=== PATIENT | female | born 1950 | race Two or more races ===

== ENCOUNTER 2021-05-26 09:43 | Outpatient (REF) | payer MEDICARE, SELFPAY ==
--- NOTE | ~2021-05-26 | MM_ITS ---
EXAMINATION: MM SCREENING DIGITAL BREAST TOMOSYNTHESIS, BILATERAL CLINICAL INFORMATION: Screening. Asymptomatic. The lifetime risk of breast cancer based on the Tyrer-Cuzick Model is 1.2%. COMPARISON: Mammography: September 12, 2019 and studies dating back to March 12, 2014 TECHNIQUE: Digital breast tomosynthesis is performed in both the craniocaudal and mediolateral oblique views along with computer-aided detection (CAD). Synthesized 2D images are generated from the tomosynthesis. FINDINGS: There are scattered areas of fibroglandular density (ACR BI-RADS breast composition Category b). There are no significant masses, abnormal calcifications, or other abnormalities. MM/MM tomosynthesis screening BI IMPRESSION: There are no significant changes from prior study. ASSESSMENT: BI-RADS 1: Negative RECOMMENDATION: Routine annual mammography screening. This patient's information was entered into a reminder system with a target due date for their next mammogram.
== END 2021-05-26 09:44 | disposition home or self-care (01) ==
LOC: HO.MAMMO 09:43
PROVIDERS: Visit Provider Internal Medicine
DX: Z12.31 Encounter for screening mammogram for malignant neoplasm of breast (principal)
CPT/HCPCS: 77063; 77067

== ENCOUNTER 2022-08-11 14:23 | Outpatient (REF) | payer OTHER, SELFPAY ==
--- NOTE | ~2022-08-11 | MM_ITS ---
EXAMINATION: MM SCREENING DIGITAL BREAST TOMOSYNTHESIS, BILATERAL CLINICAL INFORMATION: Screening. Asymptomatic. The lifetime risk of breast cancer based on the Tyrer-Cuzick Model is 3%. COMPARISON: Mammography: 05/26/2021, 09/12/2019, 07/24/2018 TECHNIQUE: Digital breast tomosynthesis is performed in both the craniocaudal and mediolateral oblique views along with computer-aided detection (CAD). Synthesized 2D images are generated from the tomosynthesis. FINDINGS: There are scattered areas of fibroglandular density (ACR BI-RADS breast composition Category b). There are no significant masses, abnormal calcifications, or other abnormalities. Parenchymal pattern is similar to prior studies. There is no developing density or architectural abnormality. The axilla and skin contours are unremarkable. No significant changes. MM/MM tomosynthesis screening BI IMPRESSION: No mammographic evidence of malignancy. ASSESSMENT: BI-RADS 1: Negative RECOMMENDATION: Routine annual mammography screening. This patient's information was entered into a reminder system with a target due date for their next mammogram.
--- NOTE | ~2022-08-11 | MM_ITS ---
EXAMINATION: BONE DENSITOMETRY CLINICAL INDICATION: Other specified disorders of bone density and structure, unspecified site.. COMPARISON: Previous BD dated 09/12/2019 and baseline BD dated 08/22/2007. TECHNIQUE: Using a Bio[employer]antis DXA System (software version: 13.1) manufactured by [employer], dual-energy x-ray absorptiometry was performed of the lumbar spine and left hip. The images are of good technical quality. Summary results are attached. FINDINGS: AP SPINE L1-L4: Current: BMD 0.999 g/cm2, Z-score 0.3, T-score -1.5, osteopenia, 4.9% increase from previous, 2.3% increase from baseline (<5% change is not significant). Prior: BMD 0.952 g/cm2. Baseline: BMD 0.977 g/cm2. LEFT FEMUR, NECK: Current: BMD 0.697 g/cm2, Z-score -0.6, T-score -2.5, osteoporosis. Prior: BMD 0.712 g/cm2. Baseline: BMD 0.815 g/cm2. LEFT FEMUR, TOTAL: Current: BMD 0.756 g/cm2, Z-score -0.3, T-score -2.0, osteopenia, 2.6% decrease from previous, 14.5% decrease from baseline (<5% change is not significant). Prior: BMD 0.776 g/cm2. Baseline: BMD 0.884 g/cm2. IDENTIFIED RISK FACTORS: Secondary osteoporosis (early menopause). HISTORY OF FRACTURE: None listed. MEDICATIONS: Vitamin D. MM/XR DEXA axial skeleton IMPRESSION: 1. DIAGNOSIS: Osteoporosis based on the lowest T-score value of -2.5 in the femoral neck applying World Health Organization criteria. 2. 10-YEAR FRACTURE RISK PREDICTION, FRAX: According to the guidelines, FRAX calculation should only be performed on patients in the osteopenia bone density category. Therefore, FRAX was not performed on this patient.? 3. Treatment Recommendations: NOF guidelines recommend consideration for treatment in postmenopausal women and men age 50 and older presenting with the following: -A hip or vertebral (clinical or morphometric) fracture. -T-score less than or equal to -2.5 at the femoral neck or spine after appropriate evaluation to exclude secondary causes. -Low bone mass at the hip or spine and a 10-year fracture probability by FRAX of greater than or equal to 3% for hip fracture or greater than or equal to 20% for major osteoporotic fracture based on the [place] adapted WHO algorithm. 4. Other Recommendations: All treatment decisions require clinical judgment and consideration of individual patient factors, including patient preferences, comorbidities, previous drug use, risk factors not captured in the FRAX model (e.g. frailty, falls, vitamin D deficiency, increased bone turnover, interval significant decline in bone density) and possible under or overestimation of fracture risk by FRAX. Additional medical evaluation for secondary cause of low bone mineral density may be appropriate. FUTURE SCAN RECOMMENDATION: People with diagnosed cases of osteoporosis or at high risk for fracture should have regular bone mineral density tests. For patients eligible for Medicare, routine testing is allowed once every 2 years. The testing frequency can be increased to one year for patients who have rapidly progressing disease, those who are receiving or discontinuing medical therapy to restore bone mass, or have additional risk factors.
== END 2022-08-11 14:24 | disposition home or self-care (01) ==
LOC: HO.MAMMO 14:23
PROVIDERS: PCP Internal Medicine; Visit Provider Internal Medicine
DX: M85.80 Other specified disorders of bone density and structure, unspecified site (principal); E28.319 Asymptomatic premature menopause
CPT/HCPCS: 77063; 77067; 77080

== ENCOUNTER 2023-03-02 08:07 | Outpatient (REF) | payer OTHER, SELFPAY ==
[2023-03-02 14:25] LABS: MANUAL DIFF FLAG NO
[2023-03-02 14:32] LABS: Basophils Absolute Auto 0.1 X10*3/uL (0.0-0.2); Basophils Percent Auto 1.2 % (0-2); Eosinophils Absolute Auto 0.6 X10*3/uL (0.0-0.4); Eosinophils Percent Auto 7.8 % (0-4); Hematocrit 37.1 % (37.0-47.0); Hemoglobin 11.8 g/dl (12.0-16.0); Imm Gran Abs Auto 0.02 X10*3/uL (0.00-0.03); Imm Gran Pct Auto 0.3 % (0.0-0.4); Lymphocytes Absolute Auto 2.2 X10*3/uL (1.2-4.9); Lymphocytes Percent Auto 28.9 % (20-40); Mean Corpuscular HGB Conc 31.8 g/dl (31.0-35.0); Mean Corpuscular Hemoglobin 28.3 pg (27.0-33.0); Mean Platelet Volume 9.9 fL (9.4-12.3); Monocytes Absolute Auto 0.8 X10*3/uL (0.1-1.2); Monocytes Percent Auto 10.6 % (2-11); Neutrophils Percent Auto 51.2 % (45-73); Platelet Count 336 X10*3/uL (160-400); Red Blood Count 4.17 X10*6/uL (4.20-5.50); Red Cell Distribution Width 13.3 % (11.0-16.0); White Blood Count 7.7 X10*3/uL (4.8-10.8)
[2023-03-02 15:26] LABS: Alanine Aminotransferase 7 U/L (0-31); Alkaline Phosphatase 59 U/L (39-117); Anion Gap 11 (12-20); Aspartate Amino Transferase 13 U/L (5-31); Bilirubin Total 0.4 mg/dL (0.0-1.0); Blood Urea Nitrogen 34 mg/dL (9-16); Calcium 9.5 mg/dL (8.4-10.2); Carbon Dioxide 24 mmol/L (22-29); Chloride 108 mmol/L (96-108); Cholesterol 184 mg/dL; Estimated Glomerular Filt Rate 35; Glucose Fasting 91 mg/dL (60-99); HDL Cholesterol 38 mg/dL; LDL Cholesterol Calculated 120 mg/dl; Potassium 4.1 mmol/L (3.3-5.1); Sodium 139 mmol/L (135-145); Total Protein 7.5 g/dL (6.5-8.0); Triglycerides 130 mg/dL
[2023-03-02 15:27] LABS: Creatinine Urine 82.91 mg/dL; Microalbum/Creatinine Ratio Ur 90.4 ug/mg cr
[2023-03-02 15:41] LABS: TSH reflex Free T4 1.38 uIU/mL (0.32-4.0)
== END 2023-03-02 08:08 | disposition home or self-care (01) ==
LOC: HO.CHCLDS 08:07
PROVIDERS: Absent Provider Internal Medicine Cardiovascular Disease; Visit Provider Internal Medicine
DX: I25.10 Atherosclerotic heart disease of native coronary artery without angina pectoris (principal); E11.9 Type 2 diabetes mellitus without complications
CPT/HCPCS: 36415; 80053; 80061; 82043; 84443; 85025

== ENCOUNTER 2023-03-22 09:56 | Outpatient (REF) | payer OTHER, SELFPAY ==
[2023-03-22 14:39] LABS: Anion Gap 15 (12-20); Blood Urea Nitrogen 45 mg/dL (9-16); Calcium 9.9 mg/dL (8.4-10.2); Carbon Dioxide 23 mmol/L (22-29); Chloride 100 mmol/L (96-108); Estimated Glomerular Filt Rate 15; Glucose Fasting 261 mg/dL (60-99); Potassium 3.6 mmol/L (3.3-5.1); Sodium 134 mmol/L (135-145)
== END 2023-03-22 09:57 | disposition home or self-care (01) ==
LOC: HO.CHCLDS 09:56
PROVIDERS: Visit Provider Internal Medicine
DX: R74.8 Abnormal levels of other serum enzymes (principal)
CPT/HCPCS: 36415; 80048

== ENCOUNTER 2023-04-16 08:47 | Outpatient (REF) | payer OTHER, SELFPAY ==
[2023-04-16 14:32] LABS: Anion Gap 14 (12-20); Blood Urea Nitrogen 19 mg/dL (9-16); Calcium 9.5 mg/dL (8.4-10.2); Carbon Dioxide 22 mmol/L (22-29); Chloride 107 mmol/L (96-108); Estimated Glomerular Filt Rate 49; Glucose Fasting 138 mg/dL (60-99); Potassium 3.8 mmol/L (3.3-5.1); Sodium 139 mmol/L (135-145)
== END 2023-04-16 08:48 | disposition home or self-care (01) ==
LOC: HO.CHCLDS 08:47
PROVIDERS: Visit Provider Internal Medicine
DX: E11.65 Type 2 diabetes mellitus with hyperglycemia (principal)
CPT/HCPCS: 36415; 80048

== ENCOUNTER 2023-08-31 09:48 | Outpatient (REF) | payer OTHER, SELFPAY ==
[2023-08-31 14:45] LABS: Alanine Aminotransferase 26 U/L (0-31); Albumin Level 4.1 g/dL (3.5-5.0); Alkaline Phosphatase 69 U/L (39-117); Anion Gap 12 (12-20); Aspartate Amino Transferase 29 U/L (5-31); Bilirubin Total 0.5 mg/dL (0.0-1.0); Blood Urea Nitrogen 25 mg/dL (9-16); Calcium 9.7 mg/dL (8.4-10.2); Carbon Dioxide 26 mmol/L (22-29); Chloride 105 mmol/L (96-108); Cholesterol 80 mg/dL (<200); Estimated Glomerular Filt Rate 43; Glucose Random 182 mg/dL (60-115); HDL Cholesterol 53 mg/dL (>40); LDL Cholesterol Calculated 17 mg/dL (<100); Potassium 3.7 mmol/L (3.3-5.1); Sodium 139 mmol/L (135-145); Total Protein 7.4 g/dL (6.5-8.0); Triglycerides 53 mg/dL (<150)
[2023-08-31 15:05] LABS: Estimated Average Glucose 189 mg/dL; Hemoglobin A1c % 8.2 % (<6.0)
== END 2023-08-31 09:49 | disposition home or self-care (01) ==
LOC: HO.CHCLDS 09:48
PROVIDERS: Visit Provider Internal Medicine
DX: E11.65 Type 2 diabetes mellitus with hyperglycemia (principal)
CPT/HCPCS: 36415; 80053; 80061; 83036

== ENCOUNTER 2023-12-14 09:10 | Outpatient (REF) | payer OTHER, SELFPAY ==
[2023-12-14 14:39] LABS: Estimated Average Glucose 171 mg/dL; Hemoglobin A1c % 7.6 % (<6.0)
[2023-12-14 14:52] LABS: Alanine Aminotransferase 10 U/L (0-31); Alkaline Phosphatase 57 U/L (39-117); Anion Gap 12 (12-20); Aspartate Amino Transferase 17 U/L (5-31); Bilirubin Total 0.4 mg/dL (0.0-1.0); Blood Urea Nitrogen 16 mg/dL (9-16); Calcium 9.5 mg/dL (8.4-10.2); Carbon Dioxide 26 mmol/L (22-29); Chloride 107 mmol/L (96-108); Estimated Glomerular Filt Rate 48; Glucose Random 70 mg/dL (60-115); Potassium 4.1 mmol/L (3.3-5.1); Sodium 141 mmol/L (135-145); Total Protein 7.1 g/dL (6.5-8.0)
== END 2023-12-14 09:11 | disposition home or self-care (01) ==
LOC: HO.CHCLDS 09:10
PROVIDERS: Visit Provider Internal Medicine
DX: E11.65 Type 2 diabetes mellitus with hyperglycemia (principal)
CPT/HCPCS: 36415; 80053; 83036

== ENCOUNTER 2024-04-01 11:08 | Outpatient (REF) | payer OTHER, SELFPAY ==
[2024-04-01 14:40] LABS: Alanine Aminotransferase 13 U/L (0-31); Albumin Level 4.1 g/dL (3.5-5.0); Alkaline Phosphatase 59 U/L (39-117); Anion Gap 11 (12-20); Aspartate Amino Transferase 17 U/L (5-31); Bilirubin Total 0.5 mg/dL (0.0-1.0); Blood Urea Nitrogen 13 mg/dL (9-16); Calcium 9.5 mg/dL (8.4-10.2); Carbon Dioxide 26 mmol/L (22-29); Chloride 106 mmol/L (96-108); Cholesterol 106 mg/dL (<200); Estimated Glomerular Filt Rate > 60; Glucose Random 146 mg/dL (60-115); HDL Cholesterol 49 mg/dL (>40); LDL Cholesterol Calculated 41 mg/dL (<100); Potassium 3.8 mmol/L (3.3-5.1); Sodium 139 mmol/L (135-145); Total Protein 7.4 g/dL (6.5-8.0); Triglycerides 84 mg/dL (<150)
[2024-04-01 14:41] LABS: Estimated Average Glucose 220 mg/dL; Hemoglobin A1c % 9.3 % (<6.0)
[2024-04-01 15:33] LABS: Creatinine Urine 112.43 mg/dL; Microalbum/Creatinine Ratio Ur 122.7 ug/mg cr (<30)
== END 2024-04-01 11:09 | disposition home or self-care (01) ==
LOC: HO.CHCLDS 11:08
PROVIDERS: Visit Provider Internal Medicine
DX: E11.65 Type 2 diabetes mellitus with hyperglycemia (principal)
CPT/HCPCS: 36415; 80053; 80061; 82043; 82570; 83036

== ENCOUNTER 2025-04-27 08:34 | Outpatient (REF) | payer OTHER, SELFPAY ==
--- OUTSIDE RECORDS SUMMARY | 2025-04-27 09:13 | XMS_ITS | Encounter Summary ---
Author Organization [employer] Address [address] [place] [address] 7 [place] [address] Care Team Providers Care Collection Agent Name Role Phone Roly Morgan MD Primary Care Prov ider Martin Stoner MD Primary Care Provider [phone] Encounter Details Date Type Department Care Team (Late st Contact Info) Description 08/10/2022 Orders Only [facility] MED & PEDS [address] [place] [address] Chaya Rolon LPN Social History Tobacco Use Types Packs/Day Years Used Date Smoking Tobacco: Never Assessed Comments Unknown Sex and Gender Information Value Date Recorded Sex Assigned at Female 05/22/2022 10:14 AM EDT Legal Sex Female 10:14 AM EDT Gender Identity Female 05/22/2022 10:14 AM EDT Sexual Orientation Straight 05/22/2022 10 :14 AM EDT documented as of this encounter Plan of Treatment Upcoming Encounters Date Type Department Care Team (Late st Contact Info) Description 05/14/2025 10:00 AM EDT Medication Management [facility]ED[facility] [address] [place] [address] Danya Padilla, PharmD [address] [place] [address] 05/19/2025 9:00 AM EDT Office Visit [facility] [address] [place] [address] Martin Stoner MD [address] [place] [address] (work) documented as of this encounter Procedures Procedure Name Priority Date/Time Associated Diagnosis Comments BI MAMMOGRAM SCREENING TOMOSYNTHESIS BILATERAL Routine 08/11/2022 3:45 PM EST BD DEXA AXIAL Routine 08/11/2022 3:20 PM EST documented in this encounter Results * BI Mammogram Screening Tomosynthesis Bilateral (08/11/2022 3:45 PM EST) Anatomical Region Laterality Modality Breast Bilateral Mammography 08/11/2022 3:45 PM EST Narrative 08/15/2022 12:46 PM EST [place] [facility] [address] [place] [address] Mammography Report Signed Patient: Gabby Mclean MR#: [id number] : 1950 Acct:[id number] Age/Sex: 71 / F ADM Date: 08/11/22 Loc: HO.MAMMO Attending Dr: Roly Garidner MD Ordering Physician: Roly Morgan MD Res ults: 1Negative Date of Service: 08/11/22 Follow Up: 1 Year From Orig inal Mammogram Procedure(s): MM tomosynthesis screening BI Accession Number(s): [id number] cc: Roly Morgan MD EXAMINATION: MM SCREENING DIGITAL BREAST TOMOSYNTHESIS, BILATERAL CLINICAL INFORMATION: Screening. Asymptomatic. The lifetime risk of breast cancer based on the Tyrer-Cuzick Model is 3%. COMPARISON: Mammography: 05/26/2021, 09/12/2019, 07/24/2018 TECHNIQUE: Digital breast tomosynthesis is performed in both the craniocaudal and mediolateral oblique views along with computer-aided detection (CAD). Synthesized 2D images are generated from the tomosynthesis. FINDINGS: There are scattered areas of fibroglandular density (ACR BI-RADS breast composition Category b). There are no significant masses, abnormal calcifications, or other abnormalities. Parenchymal pattern is similar to prior studies. There is no developing density or architectural abnormality. The axilla and skin contours are unremarkable. No significant changes. MM/MM tomosynthesis screening BI IMPRESSION: No mammographic evidence of malignancy. ASSESSMENT: BI-RADS 1: Negative RECOMMENDATION: Routine annual mammography screening. This patient's information was entered into a reminder system with a target due date for their next mammogram. Dictated By: Justni Mann MD Signed By: <Electronically signed by Justin Mann MD in OV> 08/15/22 1243 DD/ 1545 TD/TT: Technical Support 1 Software Engineer: LO Procedure Note Donotuseinterpreter, Image - 08/15/2022 [facility] [address] [place], [place] [address] Mammography Report Signed Patient: Opal Mclean#: [id number] : 9Acct:[id number] Age/Sex: 71 / FADM Date: 08/11/22 Loc: HO.MAMMO Attending Dr: Roly Gardiner MD Ordering Physician: Roly Morgan ults: 1Negative Date of Service: 08/11/22Follow Up: 1 Year From Orig inal Mammogram Procedure(s): MM tomosynthesis screening BI Accession Number(s): [id number] cc: Roly Morgan MD EXAMINATION: MM SCREENING DIGITAL BREAST TOMOSYNTHESIS, BILATERAL CLINICAL INFORMATION: Screening. Asymptomatic. The lifetime risk of breast cancer based on the Tyrer-Cuzick Model is 3%. COMPARISON: Mammography: 05/26/2021, 09/12/2019, 07/24/2018 TECHNIQUE: Digital breast tomosynthesis is performed in both the craniocaudal and mediolateral oblique views along with computer-aided detection (CAD). Synthesized 2D images are generated from the tomosynthesis. FINDINGS: There are scattered areas of fibroglandular density (ACR BI-RADS breast composition Category b). There are no significant masses, abnormal calcifications, or other abnormalities. Parenchymal pattern is similar to prior studies. There is no developing density or architectural abnormality. The axilla and skin contours are unremarkable. No significant changes. MM/MM tomosynthesis screening BI IMPRESSION: No mammographic evidence of malignancy. ASSESSMENT: BI-RADS 1: Negative RECOMMENDATION: Routine annual mammography screening. This patient's information was entered into a reminder system with a target due date for their next mammogram. Dictated By: Justin Mann MD Signed By: <Electronically signed by Justin Mann MD in OV> 08/15/22 1243 DD/ 1545 TD/TT: Technical Support 1 Software Engineer: LO [facility] External Provider IMG BI PROCEDURES Edited Result - Final * BD DEXA Axial (08/11/2022 3:20 PM EST) Anatomical Region Laterality Modality Body Radiographic Kaye ging 08/11/2022 3:20 PM EST Narrative 08/14/2022 7:35 AM EST [address] [place], [place] [address] Mammography Report Signed Patient: Gabby Mclean MR#: [id number] : 1950 Acct:[id number] Age/Sex: 71 / F ADM Date: 08/11/22 Loc: HO.MAMMO Attending Dr: Roly Gardiner MD Ordering Physician: Roly Morgan MD Res ults: Date of Service: 08/11/22 Follow Up: Procedure(s): XR DEXA axial skeleton Accession Number(s): [id number] cc: Roly Morgan MD EXAMINATION: BONE DENSITOMETRY CLINICAL INDICATION: Other specified disorders of bone density and structure, unspecified site.. COMPARISON: Previous BD dated 09/12/2019 and baseline BD dated 08/22/2007. TECHNIQUE: Using a [employer] DXA System (software version: 13.1) manufactured by [employer], dual-energy x-ray absorptiometry was performed of the lumbar spine and left hip. The images are of good technical quality. Summary results are attached. FINDINGS: AP SPINE L1-L4: Current: BMD 0.999 g/cm2, Z-score 0.3, T-score -1.5, osteopenia, 4.9% increase from previous, 2.3% increase from baseline (<5% change is not significant). Prior: BMD 0.952 g/cm2. Baseline: BMD 0.977 g/cm2. LEFT FEMUR, NECK: Current: BMD 0.697 g/cm2, Z-score -0.6, T-score -2.5, osteoporosis. Prior: BMD 0.712 g/cm2. Baseline: BMD 0.815 g/cm2. LEFT FEMUR, TOTAL: Current: BMD 0.756 g/cm2, Z-score -0.3, T-score -2.0, osteopenia, 2.6% decrease from previous, 14.5% decrease from baseline (<5% change is not significant). Prior: BMD 0.776 g/cm2. Baseline: BMD 0.884 g/cm2. IDENTIFIED RISK FACTORS: Secondary osteoporosis (early menopause). HISTORY OF FRACTURE: None listed. MEDICATIONS: Vitamin D. MM/XR DEXA axial skeleton IMPRESSION: 1. DIAGNOSIS: Osteoporosis based on the lowest T-score value of -2.5 in the femoral neck applying World Health Organization criteria. 2. 10-YEAR FRACTURE RISK PREDICTION, FRAX: According to the guidelines, FRAX calculation should only be performed on patients in the osteopenia bone density category. Therefore, FRAX was not performed on this patient.? 3. Treatment Recommendations: NOF guidelines recommend consideration for treatment in postmenopausal women and men age 50 and older presenting with the following: -A hip or vertebral (clinical or morphometric) fracture. -T-score less than or equal to -2.5 at the femoral neck or spine after appropriate evaluation to exclude secondary causes. -Low bone mass at the hip or spine and a 10-year fracture probability by FRAX of greater than or equal to 3% for hip fracture or greater than or equal to 20% for major osteoporotic fracture based on the [place] adapted WHO algorithm. 4. Other Recommendations: All treatment decisions require clinical judgment and consideration of individual patient factors, including patient preferences, comorbidities, previous drug use, risk factors not captured in the FRAX model (e.g. frailty, falls, vitamin D deficiency, increased bone turnover, interval significant decline in bone density) and possible under or overestimation of fracture risk by FRAX. Additional medical evaluation for secondary cause of low bone mineral density may be appropriate. FUTURE SCAN RECOMMENDATION: People with diagnosed cases of osteoporosis or at high risk for fracture should have regular bone mineral density tests. For patients eligible for Medicare, routine testing is allowed once every 2 years. The testing frequency can be increased to one year for patients who have rapidly progressing disease, those who are receiving or discontinuing medical therapy to restore bone mass, or have additional risk factors. Dictated By: Justin Mann MD Signed By: <Electronically signed by Justin Mann MD in OV> 08/14/22 0732 DD/ 1520 TD/TT: Technical Support 1 Software Engineer: LO Procedure Note Donotuseinterpreter, Image - 08/14/2022 [facility] [address] [place] [address] Mammography Report Signed Patient: Gabby McleanMR#: [id number] : 9Acct:[id number] Age/Sex: 71 / FADM Date: 08/11/22 Loc: HO.MAMMO Attending Dr: Roly Gardiner MD Ordering Physician: Roly Morgan ults: Date of Service: 08/11/22Follow Up: Procedure(s): XR DEXA axial skeleton Accession Number(s): [id number] cc: Roly Morgan MD EXAMINATION: BONE DENSITOMETRY CLINICAL INDICATION: Other specified disorders of bone density and structure, unspecified site.. COMPARISON: Previous BD dated 09/12/2019 and baseline BD dated 08/22/2007. TECHNIQUE: Using a [employer] DXA System (software version: 13.1) manufactured by [employer], dual-energy x-ray absorptiometry was performed of the lumbar spine and left hip. The images are of good technical quality. Summary results are attached. FINDINGS: AP SPINE L1-L4: Current: BMD 0.999 g/cm2, Z-score 0.3, T-score -1.5, osteopenia, 4.9% increase from previous, 2.3% increase from baseline (<5% change is not significant). Prior: BMD 0.952 g/cm2. Baseline: BMD 0.977 g/cm2. LEFT FEMUR, NECK: Current: BMD 0.697 g/cm2, Z-score -0.6, T-score -2.5, osteoporosis. Prior: BMD 0.712 g/cm2. Baseline: BMD 0.815 g/cm2. LEFT FEMUR, TOTAL: Current: BMD 0.756 g/cm2, Z-score -0.3, T-score -2.0, osteopenia, 2.6% decrease from previous, 14.5% decrease from baseline (<5% change is not significant). Prior: BMD 0.776 g/cm2. Baseline: BMD 0.884 g/cm2. IDENTIFIED RISK FACTORS: Secondary osteoporosis (early menopause). HISTORY OF FRACTURE: None listed. MEDICATIONS: Vitamin D. MM/XR DEXA axial skeleton IMPRESSION: 1. DIAGNOSIS: Osteoporosis based on the lowest T-score value of -2.5 in the femoral neck applying World Health Organization criteria. 2. 10-YEAR FRACTURE RISK PREDICTION, FRAX: According to the guidelines, FRAX calculation should only be performed on patients in the osteopenia bone density category. Therefore, FRAX was not performed on this patient.? 3. Treatment Recommendations: NOF guidelines recommend consideration for treatment in postmenopausal women and men age 50 and older presenting with the following: -A hip or vertebral (clinical or morphometric) fracture. -T-score less than or equal to -2.5 at the femoral neck or spine after appropriate evaluation to exclude secondary causes. -Low bone mass at the hip or spine and a 10-year fracture probability by FRAX of greater than or equal to 3% for hip fracture or greater than or equal to 20% for major osteoporotic fracture based on the [place] adapted WHO algorithm. 4. Other Recommendations: All treatment decisions require clinical judgment and consideration of individual patient factors, including patient preferences, comorbidities, previous drug use, risk factors not captured in the FRAX model (e.g. frailty, falls, vitamin D deficiency, increased bone turnover, interval significant decline in bone density) and possible under or overestimation of fracture risk by FRAX. Additional medical evaluation for secondary cause of low bone mineral density may be appropriate. FUTURE SCAN RECOMMENDATION: People with diagnosed cases of osteoporosis or at high risk for fracture should have regular bone mineral density tests. For patients eligible for Medicare, routine testing is allowed once every 2 years. The testing frequency can be increased to one year for patients who have rapidly progressing disease, those who are receiving or discontinuing medical therapy to restore bone mass, or have additional risk factors. Dictated By: Justin Mann MD Signed By: <Electronically signed by Justin Mann MD in OV> 08/14/22 0732 DD/ 1520 TD/TT: Technical Support 1 Software Engineer: TERESITA [facility] External Provider IMG DXA PROCEDURES Final Result documented in this encounter Visit Diagnoses Not on filedocumented in this encounter Care Teams Collection Agent Relationship Specialty Start Date End Date SummersRoly Smith MD [address] [place] [address] PCP - General Internal Medicine 12/21/19 04/20/25 Martin Stoner MD [address] [place] [address] PCP - General Internal Medicine 04/21/25 documented as of this encounter
--- OUTSIDE RECORDS SUMMARY | 2025-04-27 09:13 | XMS_ITS | Encounter Summary ---
Author Organization [employer] Address [address] [place] [address] [address] [place] [address] Care Team Providers Care [employer] Name Role Phone Roly Morgan MD Primary Care Prov ider Martin Stoner MD Primary Care Provider [phone] Encounter Details Date Type Department Care Team ([facility] st Contact Info) Description 10/24/2023 Orders Only [facility] MED & PEDS [address] [place], [place] [phone] Roly Morgan MD [address] [place] [address] Social History Tobacco Use Types Packs/Day Years Used Date Smoking Tobacco: Never Smokeless Tobacco: Never Alcohol Use Standard Drinks/Week Comments Never 0 (1 standard drink = 0.6 oz pur e alcohol) Depression Answer Date Recorded Patient Health Questionnaire-9 Score 0 10/09/2022 Housing Stability Answer Date Recorded What is your housing situation today? I have idania cary 05/07/[address] you li ve. Do you have problems with any of the following? None of the above 05/07/2023 Food Insecurity Answer Date Recorded Within the past 12 months, y ou worried that your food would run out before you got money to buy more: Never True 05/07/2023 Within the past 12 months,th e food you bought just didn't last and you didn't have enough money to get more: Never True Transportation Answer Date Recorded In the past 12 months, has l ack of transportation kept you from medical appts, meetings, work or from getting things needed for daily living? No 05/07/2023 Utilities Answer Date Recorded In the past 12 months, has t he electric, gas, oil or water company threatened to shut off services in your home? No 05/07/2023 Depression Answer Date Recorded Patient Health Questionnaire-2 Score 0 10/09/2022 Comments Unknown Sex and Gender Information Value [...] Description 05/14/2025 10:00 AM EDT Medication Management [facility] MED [facility] PEDS [address] [place] [address] Danya Padilla, PharmD [address] [place], [place] [phone] 05/19/2025 9:00 AM EDT Office Visit [facility] [address] [place] [address] Martin Stoner MD [address] [place] [address] documented as of this encounter Visit Diagnoses Not on filedocumented in this encounter Additional Health Concerns Assessment Noted Time PHQ-9 Depression Total Score: 0 10/10/19 23 2:31 PM EDT documented as of this encounter Care Teams [employer] Relationship Specialty Start Date End Date Roly Morgan MD [address] [place] [address] PCP - General Internal Medicine 12/21/19 04/20/25 Martin Stoner MD [address] [place] [address] PCP - General Internal Medicine 04/21/25 documented as of this encounter
--- OUTSIDE RECORDS SUMMARY | 2025-04-27 09:13 | XMS_ITS | Encounter Summary ---
Author Organization [employer] Address [address] [place] [address] [address] [place] [address] Care Team Providers Care [employer] Equipment Operator Name Role Phone Roly Morgan MD Primary Care Prov ider Martin Stoner MD Primary Care Provider [phone] Encounter Details Date Type Department Care Team ([facility] st Contact Info) Description 09/11/2023 Orders Only [facility] PEDS [address] [place], [place] [phone] Roly Morgan MD [address] [place] [address] Mixed hyperlipidemia Social History Tobacco Use Types Packs/Day Years [...] Description 05/14/2025 10:00 AM EDT Medication Management [facility] MED [facility] PEDS [address] [place] [address] Danya Padilla, PharmD [address] [place], [place] [phone] 05/19/2025 9:00 AM EDT Office Visit [facility] PED[facility] [address] [place] [address] Martin Stoner MD [address] [place] [address] documented as of this encounter Visit Diagnoses Diagnosis Mixed hyperlipidemia documented in this encounter Additional Health Concerns Assessment Noted Time PHQ-9 Depression Total Score: 0 10/10/19 23 2:31 PM EDT documented as of this encounter Care Teams [employer] Equipment Operator Relationship Specialty Start Date End Date Roly Morgan MD [address] [place] [address] PCP - General Internal Medicine 12/21/19 04/20/25 Martin Stoner MD [address] [place] [address] PCP - General Internal Medicine 04/21/25 documented as of this encounter
--- OUTSIDE RECORDS SUMMARY | 2025-04-27 09:13 | XMS_ITS | Encounter Summary ---
Author Organization [employer] Address [address] [facility] 7 [place] [address] Care Team Providers Care Employee Relations Manager Name Role Phone Roly Morgan MD Primary Care Prov ider Martin Stoner MD Primary Care Provider [phone] Reason for Visit * Reason Onset Date Comments PCP change 02/24/2025 Encounter Details Date Type Department Care Team ([facility] st Contact Info) Description 02/24/2025 Telephone [facility] [address] [place] [address] Roly Morgan MD [address] [place] [address] PCP change Social History Tobacco Use Types Packs/Day Years Used Date Smoking Tobacco: Never Smokeless Tobacco: Never Alcohol Use Standard Drinks/Week Comments Never 0 (1 standard drink = 0.6 oz pur e alcohol) Depression Answer Date Recorded Patient Health Questionnaire-9 Score 0 12/11/2023 Patient Health Questionnaire-9 Score 0 12/11/2023 Last PHQ-9: Questionnaire Data Not on file 0 12/11/2023 Housing Stability Answer Date Recorded What is your housing situation today? I have idania cary 12/11/[address] you li ve. Do you have problems with any of the following? None of the above 12/11/2023 Food Insecurity Answer Date Recorded Within the past 12 months, y ou worried that your food would run out before you got money to buy more: Never True 12/11/2023 Within the past 12 months,th e food you bought just didn't last and you didn't have enough money to get more: Never True Transportation Answer Date Recorded In the past 12 months, has l ack of transportation kept you from medical appts, meetings, work or from getting things needed for daily living? No 12/11/2023 Utilities Answer Date Recorded In the past 12 months, has t he electric, gas, oil or water company threatened to shut off services in your home? No 12/11/2023 Depression Answer Date Recorded Patient Health Questionnaire-2 Score 0 12/11/2023 Comments Unknown Sex and Gender Information Value Date Recorded Sex Assigned at Female 05/22/2022 10:14 AM EDT Legal Sex Female 10:14 AM EDT Gender Identity Female 05/22/2022 10:14 AM EDT Sexual Orientation Straight 05/22/2022 10 :14 AM EDT documented as of this encounter Miscellaneous Notes * Telephone Encounter - Kourtney Marvin - 02/24/2025 10:31 AM EDT TC from patient???s daughter, Gabby, daughter stated that the patient has not seen their PCP in over a year and is requesting to change PCP. 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 documented in this encounter Plan of Treatment Upcoming Encounters Date Type Department Care Team ([facility] st Contact Info) Description 05/14/2025 10:00 AM EDT Medication Management [facility] [address] [place] [address] Danya Padilla, PharmD [address] [place] [address] 05/19/2025 9:00 AM EDT Office Visit [facility] [address] [place], [place] [phone] Martin Stoner MD [address] [place] [address] documented as of this encounter Visit Diagnoses Not on filedocumented in this encounter Additional Health Concerns Assessment Noted Time PHQ-9 Depression Total Score: 0 12/11/19 9:28 AM EDT documented as of this encounter Care Teams Employee Relations Manager Relationship Specialty Start Date End Date Roly Morgan MD [address] [place] [address] PCP - General Internal Medicine 12/21/19 04/20/25 Martin Stoner MD [address] [place] [address] PCP - General Internal Medicine 04/21/25 documented as of this encounter
--- OUTSIDE RECORDS SUMMARY | 2025-04-27 09:13 | XMS_ITS | Encounter Summary ---
Author Organization [employer] Address [address] [place] [address] [place] [address] Care Team Providers Care Zipper Joiner Name Role Phone Roly Morgan MD Primary Care Prov ider Martin Stoner MD Primary Care Provider [phone] Reason for Visit * Reason Onset Date Comments Change PCP 02/27/2025 Encounter Details Date Type Department Care Team ([facility] st Contact Info) Description 02/27/[address] [facility] [address] [place], [place] [phone] Roly Morgan MD [address] [place] [address] Change PCP Social History Tobacco Use Types Packs/Day Years [...] your housing situation today? I have idania raeann 12/11/[address] you li [...] encounter Miscellaneous Notes * Telephone Encounter - Tanya Nicholas RN - 03/16/2025 2:58 PM EDT Returned call to pt daughter regarding request for transfer. Daughter states pt needs a provider who is available in person. Daughter states pt has been waiting for a long time for a PE and last apptin person was almost a year ago. Daughter agrees to switch to Dr Stoner and TP was given on 04/21/25. * Telephone Encounter - Misbah Rivera - 02/27/2025 8:26 AM EDT Tc from pt daughter (verbal confirmation) requesting a pcp change due to not seeing pcp in a long time. She states that her mom would need a pcp that is present at the clinic. Any questions contact pt daughter at [phone] documented in this encounter Plan of Treatment Upcoming Encounters Date Type Department Care Team (Late st Contact Info) Description 05/14/2025 10:00 AM EDT Medication Management [facility] [address] [place], [place] [phone] Danya Padilla, PharmD [address] [place], [place] [phone] 05/19/2025 9:00 AM EDT Office Visit [facility] [address] [place] [address] Martin Stoner MD [address] [place] [address] documented as of this encounter Visit Diagnoses Not on filedocumented in this encounter Additional Health Concerns Assessment Noted Time PHQ-9 Depression Total Score: 0 12/11/19 9:28 AM EDT documented as of this encounter Care Teams Zipper Joiner Relationship Specialty Start Date End Date Roly Morgan MD [address] [place] [id number] PCP - General Internal Medicine 12/21/19 04/20/25 Martin Stoner MD [address] [place] [id number] PCP - General Internal Medicine 04/21/25 documented as of this encounter
--- OUTSIDE RECORDS SUMMARY | 2025-04-27 09:13 | XMS_ITS | Clinical Summary ---
Author Organization [employer] Address [address] [place] [address] [address] [place] [address] Care Team Providers Care Production Supv Name Role Phone Martin Stoner MD Primary Care Provider [phone] Allergies No known active allergies Medications rosuvastatin (Crestor) 40 MG tabletIndication s:Mixed hyperlipidemia TAKE ONE TABLET AT BEDTIME 90 tablet 1 023 Active FREESTYLE LITE test strip TEST BLOOD SUGAR THREE TIMES DAILY 100 strip 11 023 Active TRUEplus Lancets 33G misc TEST BLOOD SUGAR THREE TIMES DAILY 100 each 023 Active Acetaminophen Extra Strength 500 MG tablet TAKE 1 OR 2 TABLETS TABLETS EVERY 8 HOURS NEEDED 100 tablet 023 Active metoprolol succinate XL (Toprol-XL) 25 MG 24 hr tablet Take 1 tablet by mouth in the morning. 023 Active Continuous Blood Gluc Sensor (FreeStyle Shirin 2 Sensor) misc 1 Units before breakfast, before lunch, and before evening meal. 2 each 023 Active Continuous Blood Gluc Suede Cleaner (FreeStyle Shirin 2 [place]) device 1 Units 3 times daily. 1 each 1 023 Active fluticasone (Flonase) 50 MCG/ACT nasal spray INHALE ONE SPRAY IN EACH NOSTRIL DAILY 16 g 023 Active Blood Pressure kit 1 kit in the morning. 1 kit 024 Active Aspirin Adult Low Strength 81 MG EC tabletIndication s:Primary hypertension,Typ e 2 diabetes mellitus with hyperglycemia, without long-term current use of insulin (HCC) TAKE ONE TABLET EVERY EVENING 30 tablet 11 024 Active cholecalciferol VITAMIN D (Vitamin D-3) 50 MCG (1999) capsuleIndicatio ns:Vitamin D deficiency TAKE ONE CAPSULE EVERY MORNING 30 capsule Active oxybutynin XL (Ditropan-XL) 5 MG 24 hr tabletIndication s:Mixed stress and urge urinary incontinence TAKE ONE TABLET EVERY MORNING 30 tablet 11 024 Active Alcohol Swabs (Alcohol Prep) 70 % pads USE FOUR DAILY 100 each 024 Active alendronate (Fosamax) 70 MG tabletIndication s:Age-related osteoporosis without current pathological fracture TAKE 1 TABLET ONCE A WEEK WITH 6 TO 8 OZ OF WATER 30 MINUTES BEFORE FIRST FOOD OF THE DAY. DO NOT LIE DOWN FOR 30 MINUTES. 4 tablet Active Jardiance 25 MGIndications:Ty pe 2 diabetes mellitus without complication, without long-term current use of insulin (HCC) TAKE ONE TABLET EVERY MORNING 90 tablet 3 025 Active BD Pen Needle Short Ultrafine 31G X 8 MM misc USE FOUR DAILY 100 each 025 Active metFORMIN (Glucophage) 500 MG tablet TAKE TWO TABLETS TWICE DAILY IN THE MORNING AND EVENING WITH FOOD 360 tablet 1 025 Active Lantus SoloStar 100 UNIT/ML pen INJECT 20 UNITS SUBCUTANEOUSLY AT BEDTIME 15 mL 3 025 Active NovoLOG FLEXPEN 100 UNIT/ML pen INJECT FIVE UNITS SUBCUTANEOUSLY BEFORE BREAKFAST, BEFORE LUNCH AND BEFORE SUPPER 15 mL 025 Active lisinopril 20 MG tabletIndication s:Primary hypertension Take 1 tablet (20 mg) by mouth Once per day. 30 tablet 025 Active Brilinta 90 MG tablet Take 1 tablet by mouth 2 times daily. 023 2024 Discontinued(T herapy completed) lisinopril 10 MG tablet Take 1 tablet by mouth 1 (one) time each day. 023 2024 Discontinued(R eorder (will not trigger notification to Pharmacy)) lisinopril 10 MG tabletIndication s:Primary hypertension Take 2 tablets (20 mg) by mouth Once per day. 30 tablet 025 2024 Discontinued(R eorder (will not trigger notification to Pharmacy)) Active Problems Problem Noted Date Diagnosed Date Osteopenia determined by x-ray 08/28/2023 0 08/28/2023 Seasonal allergies 08/28/2023 08/28/2023 Hospital discharge follow-up 04/03/2023 Assessment & Plan (04/03/2023 10:21 AM EDT): Patient was admitted at [facility] from 03/22 to 03/25, found with nito, UTI. She is currently symptom free. She has been monitoring her bp at home but did not brought the results, will schedule a follow up in 1 week. Told to get new blood work today to monitor renal function, she has a appointment with nephrology. Screening for colon cancer 10/09/2022 Assessment & Plan (10/09/2022 4:19 PM EDT): Done in 2018, with good prep, no polyp were seen Primary hypertension 08/28/2022 Assessment & Plan (09/11/2024 12:49 PM EST): Controlled, keep low sodium diet, keep bp log, continue lisinopril 20mg and metoprolol, follow up in 3 months Assessment & Plan (12/12/2023 5:42 AM EDT): Controlled, she is on lisinopril 10mg, metoprolol 25mg daily, bp target <130/80, keep low sodium diet, follow up in 4 months Assessment & Plan (08/28/2023 3:12 PM EST): Patient on lisinopril and metoprolol, not monitoring her blood pressure, will send new bp kit target <130/80, new labs ordered will follow up in 3 months Assessment & Plan (06/07/2023 1:44 PM EST): Controlled, she is on lisinopril 10mg and metoprolol, has remained >80% below 130/80, reinforced low sodium diet, will follow up in 3 months Assessment & Plan (05/08/2023 2:08 PM EDT): Controlled, no reported episode of hypotension, patient is off medications, continue monitoring, follow up with cardiology Assessment & Plan (05/02/2023 7:44 PM EDT): Repeated at the end of the visit and was 136/72 which is similar to home results, she is off htn medications, at home results have maintained below 130/80, told to hold them for now, continue daily bp monitoring, follow up with cardiology,. Assessment & Plan (04/11/2023 11:42 AM EDT): Patient has been having episode of asymptomatic BP < 100/60, will stop amlodipine, continue with lisinopril 10mg and metoprolol, bp target >100/60, <130/80. Will follow up in 1 month Assessment & Plan (04/03/2023 10:21 AM EDT): Will schedule a follow up in 1 week, new bmp ordered Currently on lisinopril 10mg and amlodipine 5mg Assessment & Plan (02/27/2023 1:19 PM EDT): Controlled, no changes will be made, reinforced low sodium diet and exercise as tolerted Assessment & Plan (10/09/2022 4:15 PM EDT): Improved, she is on lisinopril/chlorthalidone max dose and amlodipine 5mg, following cardiology, refers has remained below target 130/80, reinforced low sodium diet and exercise as tolerated Assessment & Plan (08/28/2022 3:33 PM EST): Not at target, she is on lisinopril/chlorthalidone, will add amlodipine 5mg, reinforced low sodium diet Other chest pain 08/28/2022 Assessment & Plan (08/28/2022 5:01 PM EST): Patient complains of chest pain on exertion, will refer to cardiology for evaluation, red flags reviewed Age-related osteoporosis wit hout current pathological fracture 08/16/2022 Assessment & Plan (09/11/2024 12:50 PM EST): On alendronate, will order dexa scan to evaluate current status Assessment & Plan (08/16/2022 3:01 PM EST): Patient notified of dexa scan results, will start on alendronate and calcium/vitamin d supplement, will order bloodwork to rule out secondary causes Type 2 diabetes mellitus wit h hyperglycemia, without long-term current use of insulin 08/16/2022 Assessment & Plan (09/11/2024 12:50 PM EST): On lantus/novolog, jardiance, and metformin, new labs ordered for guidance of therapy, eye exam scheduled for this year Assessment & Plan (04/01/2024 7:21 PM EDT): Will order new labs for guidance of therapy, she is on lantus 20 units, jardiance and metformin, no reported episode of hypoglycemia Eye exam done on February Assessment & Plan (12/12/2023 5:43 AM EDT): No reported episode of hypoglycemia, last A1c was 8.2%, new labs will be ordered Pending eye exam Assessment & Plan (08/28/2023 3:10 PM EST): Last 5 days [phone], on metoformin/jardiance/lantus and aspart, no reported hypoglycemia episodes, new labs will be ordered Assessment & Plan (05/08/2023 2:09 PM EDT): Will decrease lantus to 15 units, to decrease risk of hypoglycemia, continue with empagliflozin and metformin Assessment & Plan (05/02/2023 7:45 PM EDT): Controlled, no reported hypoglycemia episodes, continue current treatment Foot exam done today Assessment & Plan (04/03/2023 10:22 AM EDT): Her noon BG have been above target, will start on short acting insulin, she has a scale at home, also will send rx for CBG monitor device Assessment & Plan (02/27/2023 1:17 PM EDT): Patient is presenting with episode of hypglycemia, will decrease lantus to 30units, reinforced importance of having 3 healthy meals a day, will follow up in 1 month Assessment & Plan (01/03/2023 5:24 PM EDT): Patient having episode of hypoglycemia on fasting results, will decrease lantus to 35 units, her last meal is at 3pm, told to get a snack at night, will also discontinue short acting insulin, continue metformin and jardiance. Will follow up in 1 month Assessment & Plan (10/09/2022 4:18 PM EDT): Improved, on lantus/aspart, metformin and jardiance, will follow up in 3 months, reinforced low carb diet and exercise as tolerated. Rages from 76-205 which was an outlier, average in the 140's-150's. Eye exam will be done in october Assessment & Plan (08/28/2022 3:35 PM EST): Not at target, will increase jardiance to 25mg, and insulin aspart to 8 units, will refer to DM outreach for follow up Foot examination was unremarkable Hyperlipidemia 09/25/2018 08/28/2023 Assessment & Plan (04/01/2024 7:22 PM EDT): On rosuvastatin, new labs will be ordered for guidance of therapy OAB (overactive bladder) 09/25/2018 024 Benign essential hypertension 09/25/2018 Assessment & Plan (04/01/2024 7:19 PM EDT): Controlled, no changes will be made, continue low sodium diet, keep bp log, follow up in 4 months Type 2 diabetes mellitus 09/25/2018 024 Vitamin D deficiency 06/22/2017 08/28/2023 Encounters Date Type Department Care Team Description 04/21/2025 10:15 AM EDT Office Visit [facility] [address] [place] [address] Martin Stoner MD Type 2 diabetes mellitus with hyperglycemia, without long-term current use of insulin ([facility]) (Primary Dx); Primary hypertension; Vitamin D deficiency; Mixed hyperlipidemia; Encounter for immunization 04/21/2025 Travel 04/20/2025 Telephone [facility] [address] [place] [address] Roly Morgan MD chart prep 04/14/2025 Patient Outreach [facility] [address] [place] [id number] Roly Morgan MD Pre-visit Planning (SDOH screening negative and Tobacco screening negative) 03/17/2025 Refill [facility] [address] [place] [address] Martin Stoner MD 03/13/2025 Refill [facility] [address] [place] [address] Roly Morgan MD 02/27/2025 Telephone [facility] [address] [place] [address] Roly Morgan MD Change PCP 02/24/[address] [address] Roly Morgan MD PCP change 02/24/[address] [address] Roly Morgan MD Appointment Request 02/04/2025 Refill [facility] [address] [place] [address] Roly Morgan MD from Last 3 Months Immunizations Immunization Administration Dates Next Due Hep B, adult 11/23/2015,02/02/2015,01/01/2014 Influenza High-dose Quadriva lent Preservative Free 05/08/2022,05/13/2021,05/20/2020 Influenza injectable quadriv alent IIV4 with preservative 06/26/2019,06/22/2017,04/20/2016 Influenza injectable quadriv alent preservative free 09/25/2018 Influenza, High Dose Seasona l, Preservative Free 04/21/2025,04/01/2024 Influenza, IIV3, injectable 05/08/2022,1 ,05/20/2020,06/26,09/25/2018,06/22/2017,04/20/2016 ,05/19/2015,07/10/2014 Influenza, Split (incl. brenda fied surface antigen) 04/24/2013,04/10/2012 Influenza, seasonal, injecta ble, preservative free 05/19/2015 MMR 09/14/1997 Pneumococcal Conjugate PCV 13 11/23/2015 Pneumococcal Polysaccharide PPSV23 01/01/2014, Pneumococcal, Unspecified 06/20/2001 TD (adult), 2 Lf tetanus tox oid, preservative free, adsorbed 12/07/2005,06/25/1996 Td (adult), unspecified 12/07/2005,06/25/1996 Tdap 02/27/2023,03/24/2010 Zoster, Recombinant 02/27/2023 Zoster, live 04/24/2013 Social History Tobacco Use Types Packs/Day Years Used Date Smoking Tobacco: Never Smokeless Tobacco: Never Tobacco Cessation:Counseling Given: Not Answered Alcohol Use Standard Drinks/Week Comments Never 0 (1 standard drink = 0.6 oz pur e alcohol) Depression Answer Date Recorded Patient Health Questionnaire-9 Score 1 04/21/2025 Patient Health Questionnaire-9 Score 1 04/21/2025 Last PHQ-9: Questionnaire Data Not on file 0 04/21/2025 Housing Stability Answer Date Recorded What is your housing situation today? I have idania sing 04/14/[address] you li ve. Do you have problems with any of the following? None of the above 04/14/2025 Food Insecurity Answer Date Recorded Within the past 12 months, y ou worried that your food would run out before you got money to buy more: Never True 04/14/2025 Within the past 12 months,th e food you bought just didn't last and you didn't have enough money to get more: Never True Transportation Answer Date Recorded In the past 12 months, has l ack of transportation kept you from medical appts, meetings, work or from getting things needed for daily living? No 04/14/2025 Utilities Answer Date Recorded In the past 12 months, has t he electric, gas, oil or water company threatened to shut off services in your home? No 04/14/2025 Depression Answer Date Recorded Patient Health Questionnaire-2 Score 0 04/21/2025 Internet Access Answer Date Recorded Internet Access Q1 Yes 04/14/2025 Internet Access Q2 Not on file 04/14/2025 Comments Unknown Sex and Gender Information Value Date Recorded Sex Assigned at Female 05/22/2022 10:14 AM EDT Legal Sex Female 10:14 AM EDT Gender Identity Female 05/22/2022 10:14 AM EDT Sexual Orientation Straight 05/22/2022 10 :14 AM EDT Last Filed Vital Signs Vital Sign Reading Time Taken Comments Blood Pressure 153/76 04/21/2025 10:18 AM EDT Pulse 76 04/21/2025 10:18 AM EDT Temperature 37.1 C (98.7 F) 04/01/2024 10:32 AM EDT Respiratory Rate 20 04/21/2025 10:18 AM EDT Oxygen Saturation 97% 04/21/2025 10:18 AM EDT Inhaled Oxygen Concentration - - Weight 55.3 kg (122 lb) 04/21/2025 10:18 AM EDT Height 154.9 cm (5' 1 ) 04/21/2025 10:18 AM EDT Body Mass Index 23.05 04/21/2025 10:18 AM EDT Plan of Treatment Upcoming Encounters Date Type Department Care Team (Late st Contact Info) Description 05/14/2025 10:00 AM EDT Medication Management [facility] [address] [place] [address] Danya Padilla, AltaD [address] [place] [address] 05/19/2025 9:00 AM EDT Office Visit [facility] [address] [place] [address] Martin Stoner MD [address] [place] [address] Health Maintenance Due Date Last Done Comments Eye Exam 1960 Zoster Vaccines (3 of 3) 04/24/2023 02/27/2023, 09/2012 RSV Patients and Patients Aged 60 years or older (1 - 1-dose 75+ series) 12/04/2023 COVID-19 Vaccine ( season) 2025 08/18/2021, 10/27/2020, 09/29/2020 Diabetes: Urine Protein Screening 04/01/2025 04/01/2024, 03/02/2023, 02/22/2021 Lipid Panel 04/01/2025 04/01/2024, 03/2024, 03/02/2023, Additional history exists Diabetes: Hemoglobin A1C 07/21/2025 025, 04/01/2024, 12/14/2023, Additional history exists Alcohol/Substance Use Screening 09/11/2025 09/11/2024 SDOH Screening 04/14/2026 04/14/2025 Depression Screening 04/21/2026 04/21/2025, 04/21/20 25 Diabetes: Foot Exam 04/21/2026 04/21/2025, 05/02/2023, 05/02/2023, Additional history exists Tobacco Screening 04/21/2026 04/21/2025 DTaP/Tdap/Td Vaccines (3 - Td or Tdap) 02/27/2033 02/27/2023, 03/24/2010, 12/07/2005, Additional history exists Colonoscopy Discontinued 10/01/2007 Colorectal Cancer Screening Discontinued Hepatitis B Vaccines Completed 11/23/2015, 02/02/2015, 01/01/2014 Pneumococcal Vaccine: 50+ Years Completed 11/23/2015, 01/01/2014, 06/20/2001, Additional history exists Hepatitis C Screening Completed 04/03/2022 Influenza Vaccine Completed 04/21/2025, , 05/08/2022, Additional history exists CT Colonography Discontinued FIT DNA/Cologuard Discontinued FIT Discontinued FOBT Discontinued HIB Vaccines Aged Out No longer eligi ble based on patient's age to complete this topic HPV Vaccines Aged Out No longer eligi ble based on patient's age to complete this topic Hepatitis A Vaccines Aged Out No long er eligible based on patient's age to complete this topic IPV Vaccines Aged Out No longer eligi ble based on patient's age to complete this topic Meningococcal B Vaccine Aged Out No l onger eligible based on patient's age to complete this topic Meningococcal Vaccine Aged Out No zina tiffani eligible based on patient's age to complete this topic RSV under 20 months Aged Out No longe r eligible based on patient's age to complete this topic Rotavirus Vaccines Aged Out No longer eligible based on patient's age to complete this topic Sigmoidoscopy Discontinued Procedures Procedure Name Priority Date/Time Associated Diagnosis Comments POCT GLUCOSE Routine 04/21/2025 10:45 AM EDT Type 2 diabetes mellitus with hyperglycemia, without long-term current use of insulin (CMS/HCC) POCT GLYCATED HEMOGLOBIN, TOTAL Routine 04/21/2025 10:44 AM EDT Type 2 diabetes mellitus with hyperglycemia, without long-term current use of insulin (CMS/HCC) ALBUMIN, RANDOM URINE W/CREATININE Routine 04/01/2024 11:10 AM EDT Type 2 diabetes mellitus with hyperglycemia, without long-term current use of insulin (CMS/HCC) LIPID PANEL, STANDARD Routine 04/01/2024 11:09 AM EDT Type 2 diabetes mellitus with hyperglycemia, without long-term current use of insulin (CMS/HCC) ZZZ HISTORICAL HEPATITIS C AB W/REFL TO HCV RNA, QN, PCR Routine 04/03/2022 10:03 AM EDT HM COLONOSCOPY Routine 10/01/2007 9:07 AM EDT from Last 3 Months or Most Recently Relevant to Health Maintenance Results * (ABNORMAL) POCT Glucose (04/21/2025 10:45 AM EDT) Pathologist [facility] Glucose Blood, POC 226(A) 60 - 200 mg/dL QC Media Lot # [id number] Lot# Expiration Date Comment:RANDOM Blood Capillary blood specimen / Unknown 04/21/2025 10:45 AM EDT us Martin Stoner MD POINT OF CARE TEST ENTER/ED IT ORDERABLES Final Result * (ABNORMAL) POCT Hgb A1c (04/21/2025 10:44 AM EDT) Hemoglobin A1C 8.0(A) 4.0 - 5.7 % QC Media Lot # [id number] Lot# Expiration Date ,[id number] Blood 04/21/2025 10:4 4 AM EDT us Martin Stoner MD POINT OF CARE TEST ENTER/ED IT ORDERABLES Final Result * (ABNORMAL) Albumin, Random Urine W/Creatinine (04/01/2024 11:10 AM EDT) Creatinine, Urine 112.43 mg/dL [facility] Microalbumin Urine 138.0 mg/L [facility] Microalbum Creatinine Ratio Ur 122.7(H) <30 ug/mg cr [facility] Comment:Albumin/Creatinine R atio Reference Ranges: Normal: < 30 ug/mg creatinine Microalbuminuria: 30 - 300 ug/mg creatinineClinical Albuminuria: > 300 ug/mg creatinine Urine (Urine, Random) 04/01/2024 11:10 AM EDT 04/01/2024 2:05 PM EDT us Roly Gardiner MD LAB URINE ORDERABL ES Final Result [facility] [address] [place] [address] [phone] * Lipid Panel, Standard (04/01/2024 11:09 AM EDT) Triglycerides 84 <150 mg/dL [facility] Comment:Desirable Triglyceri de: less than 150 mg/dLBorderline High Triglyceride 150-199 mg/dLHigh Triglyceride: 200-499 mg/dLVery High Triglyceride: greater than or equal to 5OO mg/dL Cholesterol 106 <200 mg/dL [facility] Comment:Desirable Cholestero l: less than 200 mg/dLBorderline High Cholesterol: 200-239 mg/dLHigh Cholesterol: greater than 239 mg/dL LDL Cholesterol Calculated 41 <100 mg/dL [facility] Comment:Desirable LDL: less than 100 mg/dLNear Optimal/Above Optimal LDL: 110- 129 mg/dLBorderline High LDL: 130-159 mg/dLHigh LDL: 160-189 mg/dLVery High LDL: greater than or equal to 190 mg/dL HDL Cholesterol 49 >40 mg/dL [facility] Comment:Desirable HDL: great er than 40 mg/dL Note: This HDL assay may give artificially low results in patients with liver disease. Blood Venous blood specimen / Unknown 04/01/2024 11:09 AM EDT 04/01/2024 2:01 PM EDT Roly Gardiner MD LAB BLOOD ORDERABL ES Final Result [facility] [address] [place] [phone] * HEPATITIS C AB W/REFL TO HCV RNA, QN, PCR (04/03/2022 10:03 AM EDT) HEPATITIS C ANTIBODY NON-REACT CRIS NON-REACT CRIS [facility] INDEX 0.15 <1.00 [facility] Comment: HCV antibody was non-reactive. There is no laboratory evidence of HCV infection. In most cases, no further action is required. However, if recent HCV exposure is suspected, a test for HCV RNA (test code 58007) is suggested. For additional information please refer to http://education.Zomato.Amura/faq/HFZ94q9 (This link is being provided for informational/ educational purposes only.) 04/03/2022 10:0 3 AM EDT Roly Gardiner MD HISTORICAL/NON ORD ERABLE LABS Final Result [facility] [address] [place] [address], * Hm Colonoscopy (10/01/2007 9:07 AM EDT) us Historical Provider HEALTH MAINTENANCE Final Result from Last 3 Months or Most Recently Relevant to Health Maintenance Insurance [id number] [employer] [employer] (HMO D-SNP) LAURA RAMOS [id number] Care Teams Production Supv Relationship Specialty Start Date End Date Martin Stoner MD [address] [place] [phone] PCP - General Internal Medicine 04/21/25
--- OUTSIDE RECORDS SUMMARY | 2025-04-27 09:13 | XMS_ITS | Encounter Summary ---
Author Organization [employer] Address [address] [place] [address] [address] [place] [address] Care Team Providers Care Refrigeration Engineer Name Role Phone Roly Morgan MD Primary Care Prov ider Martin Stoner MD Primary Care Provider [phone] Encounter Details Date Type Department Care Team (Late st Contact Info) Description 11/12/2023 Orders Only [facility] [address] [place] [address] ProviderSimran MD Social History Tobacco Use Types Packs/Day Years Used Date Smoking Tobacco: Never Smokeless Tobacco: Never Alcohol Use Standard Drinks/Week Comments Never 0 (1 standard drink = 0.6 oz pur e alcohol) Depression Answer Date Recorded Patient Health Questionnaire-9 Score 0 10/09/2022 Housing Stability Answer Date Recorded What is your housing situation today? I have idaniacatrachita cary 05/07/[address] you [...] Description 05/14/2025 10:00 AM EDT Medication Management [facility] [address] [place] [address] Danya Padilla, AltaD [address] [place] [address] 05/19/2025 9:00 AM EDT Office Visit [facility] [address] [place] [address] Martin Stoner MD [address] [place] [address] documented as of this encounter Procedures Procedure Name Priority Date/Time Associated Diagnosis Comments HM COLONOSCOPY Routine 10/01/2007 9:07 AM EDT documented in this encounter Results * Hm Colonoscopy (10/01/2007 9:07 AM EDT) Historical Provider HEALTH MAINTENANCE Final Result documented in this encounter Visit Diagnoses Not on filedocumented in this encounter Additional Health Concerns Assessment Noted Time PHQ-9 Depression Total Score: 0 10/10/19 23 2:31 PM EDT documented as of this encounter Care Teams Refrigeration Engineer Relationship Specialty Start Date End Date Roly Morgan MD [address] [place] [address] PCP - General Internal Medicine 12/21/19 04/20/25 Martin Stoner MD [address] [place] [address] PCP - General Internal Medicine 04/21/25 documented as of this encounter
--- OUTSIDE RECORDS SUMMARY | 2025-04-27 09:13 | XMS_ITS | Encounter Summary ---
Author Organization [employer] Address [address] [place] [address] Care Team Providers Care Training Lead Name Role Phone Roly Morgan MD Primary Care Prov ider Martin Stoner MD Primary Care Provider [phone]- [phone] Encounter Details Date Type Department Care Team (Late st Contact Info) Description 07/19/2022 Telephone [facility] MED & PEDS [address] [place], [place] [phone] Roly Morgan MD 505 [place] [address] Social History Tobacco Use Types Packs/Day Years [...] Description 05/14/2025 10:00 AM EDT Medication Management [facility] MED [facility]EDS [address] [place], [place] [phone] Danya Padilla, PharmD [address] [place] [address] 05/19/2025 9:00 AM EDT Office Visit [facility] MED & PEDS [address] [place], [place] [phone] Martin Stoner MD 505 [place] [address] documented as of this encounter Visit Diagnoses Not on filedocumented in this encounter Care Teams Training Lead Relationship Specialty Start Date End Date Roly Morgan MD 505 [place] [address] PCP - General Internal Medicine 12/21/19 04/20/25 Martin Stoner MD 505 [place] [address] PCP - General Internal Medicine 04/21/25 documented as of this encounter
--- OUTSIDE RECORDS SUMMARY | 2025-04-27 09:13 | XMS_ITS | Encounter Summary ---
Author Organization [employer] Address [address] [facility] 7 [place] [address] Care Team Providers Care Folder Machine Adjuster Name Role Phone Roly Morgan MD Primary Care Prov ider Martin Stoner MD Primary Care Provider [phone]- [phone] Reason for Visit * Reason Onset Date Comments Appointment Request 02/24/2025 Encounter Details Date Type Department Care Team ([facility] st Contact Info) Description 02/24/2025 Telephone [facility] MEDICINE 230 [place] [address] Roly Morgan MD 505 [place] [address] Appointment Request Social History Tobacco Use Types Packs/Day Years [...] Telephone Encounter - Kourtney Marvin - 02/24/2025 10:28 AM EDT TC from patient???s daughter, Gabby, requesting a call back. Daughter requesting an appointment with the doctor. NO further details given Contact pt at [phone] documented in this encounter Plan of Treatment Upcoming Encounters Date Type Department Care Team ([facility] st Contact Info) Description 05/14/2025 10:00 AM EDT Medication Management [facility] MED & PEDS [address] [place] [address] Danya Padilla PharmD 230 [place] [address] 05/19/2025 9:00 AM EDT Office Visit [facility] MED & PEDS [address] [place] [address] Martin Stoner MD 505 [place] [address] documented as of this encounter Visit Diagnoses Not on filedocumented in this encounter Additional Health Concerns Assessment Noted Time PHQ-9 Depression Total Score: 0 12/11/19 24 9:28 AM EDT documented as of this encounter Care Teams Folder Machine Adjuster Relationship Specialty Start Date End Date Roly Morgan MD 505 [place] [address] PCP - General Internal Medicine 12/21/19 04/20/25 Martin Stoner MD 505 [place] [address] PCP - General Internal Medicine 04/21/25 documented as of this encounter
--- OUTSIDE RECORDS SUMMARY | 2025-04-27 09:14 | XMS_ITS | Encounter Summary ---
Author Organization [employer] Address [address] [place] [address] 7 [place] [address] Care Team Providers Care Warp Splitter Name Role Phone Roly Morgan MD Primary Care Prov ider Martin Stoner MD Primary Care Provider [phone] Encounter Details Date Type Department Care Team (Late st Contact Info) Description 12/12/2024 Orders Only [facility] [address] [place] [address] Provider, MD Simran Social History Tobacco Use Types Packs/Day Years [...] Description 05/14/2025 10:00 AM EDT Medication Management [facility] MED & PEDS [address] [place] [address] Danya Padilla PharmD [address] [place] [address] 05/19/2025 9:00 AM EDT Office Visit [facility] MED & PEDS 505 [place] [address] Martin Stoner MD 505 [place], [place] [phone] documented as of this encounter Procedures Procedure Name Priority Date/Time Associated Diagnosis Comments BONE DENSITY/DEXA (HIPS, PELVIS OR SPINE) Routine 12/10/2024 12:52 PM EDT documented in this encounter Results * BONE DENSITY/DEXA (HIPS, PELVIS OR SPINE) (12/10/2024 12:52 PM EDT) Anatomical Region Laterality Modality L-spine N/A Radiographic Kaye ging us Historical Provider MD SANDERS DXA PROCEDURES Final Result documented in this encounter Visit Diagnoses Not on filedocumented in this encounter Additional Health Concerns Assessment Noted Time PHQ-9 Depression Total Score: 0 12/11/19 24 9:28 AM EDT documented as of this encounter Care Teams Warp Splitter Relationship Specialty Start Date End Date SummersRoly Smith MD [address] [place] [address] PCP - General Internal Medicine 12/21/19 04/20/25 Martin Stoner MD [address] [place] [address] PCP - General Internal Medicine 04/21/25 documented as of this encounter
--- OUTSIDE RECORDS SUMMARY | 2025-04-27 09:14 | XMS_ITS | Encounter Summary ---
Author Organization [employer] Address [address] [place] [address] [place] [address] Care Team Providers Care Senior Back End Java Developer Name Role Phone Roly Morgan MD Primary Care Prov ider Martin Stoner MD Primary Care Provider [phone] Encounter Details Date Type Department Care Team (Late st Contact Info) Description 03/22/2023 Orders Only [facility] MED & PEDS 505 [place], [place] [phone] Roly Morgan MD 505 [place] [address] Social History Tobacco Use Types Packs/Day Years Used Date Smoking Tobacco: Never Smokeless Tobacco: Never Alcohol Use Standard Drinks/Week Comments Never 0 (1 standard drink = 0.6 oz pur e alcohol) Depression Answer Date Recorded Patient Health Questionnaire-9 Score 0 10/09/2022 Depression Answer Date Recorded Patient Health Questionnaire-2 [...] 10:00 AM EDT Medication Management [facility] MED & PEDS 505 [place], [place] [phone] Danya Padilla PharmD 230 [place] [address] 05/19/2025 9:00 AM EDT Office Visit [facility] CH[facility] MED & PEDS [address] [place] [address] Martin Stoner MD 505 [place] [address] documented as of this encounter Visit Diagnoses Not on filedocumented in this encounter Additional Health Concerns Assessment Noted Time PHQ-9 Depression Total Score: 0 10/10/19 23 2:31 PM EDT documented as of this encounter Care Teams Senior Back End Java Developer Relationship Specialty Start Date End Date Roly Morgan MD [address] [place] [address] PCP - General Internal Medicine 12/21/19 04/20/25 Martin Stoner MD [address] [place] [address] PCP - General Internal Medicine 04/21/25 documented as of this encounter
--- OUTSIDE RECORDS SUMMARY | 2025-04-27 09:14 | XMS_ITS | Clinical Summary ---
Author Organization [facility] Address [address] [place] [address] Phone Care Team Providers Care Char House Supervisor Name Role Phone Roly Morgan Primary Care Provide r Social History Tobacco Use Types Packs/Day Years Used Date Smoking Tobacco: Never Assessed Comments Unknown Sex and Gender Information Value Date Recorded Sex Assigned at Female 09/23/2024 11:53 AM EST Legal Sex Female 8:45 PM EST Gender Identity Female 09/23/2024 11:53 AM EST Sexual Orientation Straight 09/23/2024 11 :53 AM EST Plan of Treatment Health Maintenance Due Date Last Done Comments Diabetes: Annual GFR (Glomerular Filtration Rate) 1950 Diabetes: Annual Foot Exam 1958 Diabetes: Annual Retina Eye Exam 1960 Zoster Vaccines (3 of 3) 04/24/2023 02/27/2023, 09/2012 Falls Risk Assessment 08/17/2023 Hepatitis C Screening 08/17/2023 Medicare Annual Wellness Visit 08/17/2023 Social Influencers of Health Screening 08/17/2023 RSV Immunization Adult Patients (1 - 1-dose 75+ series) 12/04/2023 Depression Screening 07/23/2024 Diabetes: Annual Urine Albumin-Creatinine Ratio (uACR) 12/10/2024 Diabetes: Blood Sugar Control Test (HGBA1C) 12/10/2024 04/01/2024 Hypertension/CHF/CAD Annual BMP Blood Test 12/10/2024 COVID-19 Vaccine ( season) 2025 08/18/2021, 10/27/2020, 09/29/2020 Influenza Vaccine (#1) 2025 , 05/08/2022, 05/13/2021, Additional history exists Cholesterol Screening (Lipid Panel) 04/01/2029 04/01/2024 DTaP,Tdap,and Td Vaccines (5 - Td or Tdap) 02/27/2033 02/27/2023, 03/24/2010, 12/07/2005, Additional history exists Osteoporosis Screening (Bone Density Screening) 12/10/2034 12/10/2024 MMR Vaccines Aged Out 09/14/1997 No longer eligi ble based on patient's age to complete this topic Hepatitis B Vaccines Completed 11/23/2015, 02/02/2015, 01/01/2014 Pneumococcal Vaccine: 50+ Years Completed 11/23/2015, 01/01/2014, 06/20/2001, Additional history exists HIB Vaccines Aged Out No longer eligi [...] patient's age to complete this topic Meningococcal ACWY Vaccine Aged Out N o longer eligible based on patient's age to complete this topic Meningococcal B Vaccine Aged Out No l onger eligible based on patient's age to complete this topic RSV Immunization Patients Under 20 months Aged Out No longer eligible based on patient's age to complete this topic Varicella Vaccines Aged Out No longer eligible based on patient's age to complete this topic Procedures Procedure Name Priority Date/Time Associated Diagnosis Comments BD BONE DENSITY DXA AXIAL SKELETON Routine 12/10/2024 10:46 AM EDT Age-related osteoporosis without current pathological fracture from Last 3 Months or Most Recently Relevant to Health Maintenance Results * BD Bone Density DXA Axial Skeleton (12/10/2024 10:46 AM EDT) Anatomical Region Laterality Modality Wrist, Hip, L-spine Bone Densito metry 12/12/2024 8:14 AM EDT Impressions 12/12/2024 8:15 AM EDT 1. Osteopenia. 2. FRAX analysis yields a 10-year probability of major osteoporotic fracture of 9.6% and a 10-year probability of hip fracture of 2.9%. Code 35914 -------- FINAL REPORT -------- Dictated By: Ricky Raman Dictated Date: 12/12/2024 08:14 ET Assigned Physician: Ricky Raman Reviewed and Electronically Signed By: Ricky Raman Signed Date: 12/12/2024 08:15 ET Workstation ID: [id number] Transcribed By: Self Edit Transcribed Date: 12/12/2024 08:14 ET Narrative 12/12/2024 8:15 AM EDT HISTORY: The patient is a 74-year-old postmenopausal female with clinical concern for metabolic bone disease. FINDINGS: Dual energy x-ray absorptiometry of the lumbar spine and femurs is performed. The mean bone mineral density at L1-L4 is 1.021 gm/cm2 which is 87% of that of young normals and 109% of that of age matched controls. This yields a T-score of -1.3 and a Z-score of 0.7 which is diagnostic of osteopenia. The mean bone mineral density of the femurs bilaterally is 0.756 gm/cm2 which is 75% of that of young normals and 100% of that of age matched controls. This yields a T-score of -2.0 and a Z-score of 0.0 which is diagnostic of osteopenia. The T-score of the right femoral neck is -2.4 and that of the left femoral neck is -2.4 which is diagnostic of osteopenia. Procedure Note Ricky Raman MD - 12/12/2024 HISTORY: The patient is a 74-year-old postmenopausal female with clinicalconcern for metabolic bone disease. FINDINGS: Dual energy x-ray absorptiometry of the lumbar spine and femursis performed. The mean bone mineral density at L1-L4 is 1.021 gm/cm2 whichis 87% of that of young normals and 109% of that of age matched controls.This yields a T-score of -1.3 and a Z-score of 0.7 which is diagnostic ofosteopenia. The mean bone mineral density of the femurs bilaterally is 0.756 gm/mp6ndblz is 75% of that of young normals and 100% of that of age matchedcontrols. This yields a T-score of -2.0 and a Z-score of 0.0 which isdiagnostic of osteopenia. The T- score of the right femoral neck is -2.4and that of the left femoral neck is -2.4 which is diagnostic ofosteopenia. IMPRESSION: 1. Osteopenia. 2. FRAX analysis yields a 10-year probability of major osteoporoticfracture of 9.6% and a 10-year probability of hip fracture of 2.9%. Code 83334 -------- FINAL REPORT -------- Dictated By: Ricky Raman Dictated Date: 12/12/2024 08:14 ET Assigned Physician: Ricky Raman Reviewed and Electronically Signed By: Ricky Raman Signed Date: 12/12/2024 08:15 ET Workstation ID: [id number] Transcribed By: Self Edit Transcribed Date: 12/12/2024 08:14 ET Roly Gardiner [facility] DXA PROCEDURES Fi nal Result from Last 3 Months or Most Recently Relevant to Health Maintenance Insurance [place]ICAID - [place] [facility] MEDICARE Member Subscriber Plan / Payer (Ef fective 2016-Present) Name:Gabby Mclean Relation to Subscriber:Self Name:Gabby Mclean Payer ID:[id number] Group ID:[id number] Type:Not on file Address: [address] [place] [address] Care Teams Char House Supervisor Relationship Specialty Start Date End Date Roly Morgan [address] [place] [address] PCP - General Internal Medicine 09/23/24
--- OUTSIDE RECORDS SUMMARY | 2025-04-27 09:14 | XMS_ITS | Encounter Summary ---
Author Organization [employer] Address [address] [place] [address] 7 [place] [address] Care Team Providers Care Producer Name Role Phone Roly Morgan MD Primary Care Prov ider Martin Stoner MD Primary Care Provider [phone]- [phone] Encounter Details Date Type Department Care Team (Late st Contact Info) Description 12/22/2022 Orders Only [facility] MED & PEDS [address] [place] [address] Chaya Rolon LPN Social History Tobacco Use Types Packs/Day Years Used Date Smoking Tobacco: Never Assessed Depression Answer Date Recorded Patient Health Questionnaire-9 [...] Description 05/14/2025 10:00 AM EDT Medication Management [facility] MED & PEDS [address] [place] [address] Danya Padilla, PharmD [address] [place] [address] 05/19/2025 9:00 AM EDT Office Visit [facility] MED & PEDS [address] [place] [address] Martin Stoner MD 505 [place] [address] documented as of this encounter Visit Diagnoses Not on filedocumented in this encounter Additional Health Concerns Assessment Noted Time PHQ-9 Depression Total Score: 0 10/10/19 23 2:31 PM EDT documented as of this encounter Care Teams Producer Relationship Specialty Start Date End Date Roly Morgan MD [address] [place] [address] PCP - General Internal Medicine 12/21/19 04/20/25 Martin Stoner MD [address] [place] [address] PCP - General Internal Medicine 04/21/25 documented as of this encounter
--- OUTSIDE RECORDS SUMMARY | 2025-04-27 09:14 | XMS_ITS | Encounter Summary ---
Author Organization [employer] Address [address] [place] [address] 7t [place] [address] Care Team Providers Care County Or City Auditor Name Role Phone Roly Morgan MD Primary Care Prov ider Martin Stoner MD Primary Care Provider [phone]- [phone] Encounter Details Date Type Department Care Team (Late st Contact Info) Description 10/13/2022 Orders Only [facility] MED & PEDS [address] [place] [address] Chaya Rolon LPN Social History Tobacco Use [...] Orientation Straight 05/22/2022 10 :14 AM EDT COVID-19 Exposure Response Date Recorded In the last 10 days, have yo u been in contact with someone who was confirmed or suspected to have Coronavirus/COVID-19? No / Unsure 10/09/2022 2:15 PM EDT documented as of this encounter Plan of Treatment Upcoming Encounters Date Type Department Care Team (Late st Contact Info) Description 05/14/2025 10:00 AM EDT Medication Management [facility] MED & PEDS [address] [place] [address] Danya Padilla, PharmD [address] [place], [place] [phone] 05/19/2025 9:00 AM EDT Office Visit [facility] CH[facility] MED & PEDS [address] [place] [address] Martin Stoner MD 505 [place] [address] documented as of this encounter Visit Diagnoses Not on filedocumented in this encounter Additional Health Concerns Assessment Noted Time PHQ-9 Depression Total Score: 0 10/10/19 23 2:31 PM EDT documented as of this encounter Care Teams County Or City Auditor Relationship Specialty Start Date End Date SummersRoly Smith MD [address] [place] [address] PCP - General Internal Medicine 12/21/19 04/20/25 Martin Stoner MD [address] [place] [address] PCP - General Internal Medicine 04/21/25 documented as of this encounter
[2025-04-27 14:42] LABS: MANUAL DIFF FLAG NO
[2025-04-27 14:52] LABS: Hematocrit 41.3 % (37.0-47.0); Hemoglobin 13.7 g/dl (12.0-16.0); Imm Gran Abs Auto 0.03 X10*3/uL (0.00-0.03); Imm Gran Pct Auto 0.3 % (0.0-0.4); Lymphocytes Absolute Auto 3.0 X10*3/uL (1.2-4.9); Mean Corpuscular HGB Conc 33.2 g/dl (31.0-35.0); Mean Corpuscular Hemoglobin 28.4 pg (27.0-33.0); Mean Corpuscular Volume 85.7 fL (80.0-98.0); NRBC Abs Auto 0.000 X10*3/uL (0.0-0.012); NRBC Pct Auto 0.0 /100WBC (0.0-0.2); Platelet Count 330 X10*3/uL (160-400); Red Blood Count 4.82 X10*6/uL (4.20-5.50); White Blood Count 9.4 X10*3/uL (4.8-10.8)
[2025-04-27 15:32] LABS: Alanine Aminotransferase 10 U/L (0-31); Albumin Level 4.0 g/dL (3.5-5.0); Alkaline Phosphatase 65 U/L (39-117); Anion Gap 9 (12-20); Aspartate Amino Transferase 29 U/L (5-31); Blood Urea Nitrogen 24 mg/dL (9-16); Calcium 9.4 mg/dL (8.4-10.2); Carbon Dioxide 28 mmol/L (22-29); Chloride 108 mmol/L (96-108); Cholesterol 80 mg/dL (<200); Estimated Glomerular Filt Rate 46; HDL Cholesterol 45 mg/dL (>40); Potassium 3.6 mmol/L (3.3-5.1); Sodium 141 mmol/L (135-145); Total Protein 6.9 g/dL (6.5-8.0); Triglycerides 70 mg/dL (<150)
[2025-04-27 15:33] LABS: Microalbum/Creatinine Ratio Ur 40.5 ug/mg cr (<30)
== END 2025-04-27 08:35 | disposition home or self-care (01) ==
LOC: HO.CHCLDS 08:34
PROVIDERS: Visit Provider Internal Medicine
DX: E11.65 Type 2 diabetes mellitus with hyperglycemia (principal)
CPT/HCPCS: 36415; 80053; 80061; 82043; 82570; 84443; 85025

== ENCOUNTER 2025-05-14 11:37 | Outpatient (REF) | payer OTHER, SELFPAY ==
--- OUTSIDE RECORDS SUMMARY | 2025-05-14 14:50 | XMS_ITS | Encounter Summary ---
Author Organization [employer] Address [address] [place] [address] 7 [place] [address] Care Team Providers Care Hide Cooking Operator Name Role Phone Roly Morgan MD Primary Care Prov ider Martin Stoner MD Primary Care Provider [phone]- [phone] Encounter Details Date Type Department Care Team ([facility] st Contact Info) Description 09/11/2023 Orders Only [facility] CH[facility] MED & PEDS [address] [place], [place] [phone] Roly Morgan MD [address] [place] [address] Mixed hyperlipidemia Social History Tobacco Use Types [...] Care Team (Late st Contact Info) Description 05/19/2025 9:00 AM EDT Office Visit [facility] MED & PEDS [address] [place] [address] Martin Stoner MD [address] [place] [address] documented as of this encounter Visit Diagnoses Diagnosis Mixed hyperlipidemia documented in this encounter Additional Health Concerns Assessment Noted Time PHQ-9 Depression Total Score: 0 10/10/19 23 2:31 PM EDT documented as of this encounter Care Teams Hide Cooking Operator Relationship Specialty Start Date End Date Roly Morgan MD [address] [place] [address] PCP - General Internal Medicine 12/21/19 04/20/25 Martin Stoner MD [address] [place] [address] PCP - General Internal Medicine 04/21/25 documented as of this encounter
--- OUTSIDE RECORDS SUMMARY | 2025-05-14 14:50 | XMS_ITS | Encounter Summary ---
Author Organization [employer] Address [address] [place] [address] Care Team Providers Care Crm Technical Lead Name Role Phone Roly Morgan MD Primary Care Prov ider Martin Stoner MD Primary Care Provider +[phone]- [phone] Encounter Details Date Type Department Care Team (Late st Contact Info) Description 07/19/2022 Telephone [facility] MED & PEDS [address] [place] [address] Roly Morgan MD [address] [place] [address] Social History Tobacco Use Types Packs/Day Years [...] Description 05/19/2025 9:00 AM EDT Office Visit [facility] MED & PEDS [address] [place] [address] Martin Stoner MD [address] [place] [address] documented as of this encounter Visit Diagnoses Not on filedocumented in this encounter Care Teams Crm Technical Lead Relationship Specialty Start Date End Date Roly Morgan MD [address] [place] [address] PCP - General Internal Medicine 12/21/19 04/20/25 Martin Stoner MD [address] [place] [address] PCP - General Internal Medicine 04/21/25 documented as of this encounter
--- OUTSIDE RECORDS SUMMARY | 2025-05-14 14:50 | XMS_ITS | Encounter Summary ---
Author Organization [employer] Address [address] [place] [address] Care Team Providers Care Machine Farmworker Name Role Phone Roly Morgan MD Primary Care Prov ider Martin Stoner MD Primary Care Provider [phone]- [phone] Encounter Details Date Type Department Care Team (Late st Contact Info) Description 08/10/2022 Orders Only [facility] MED & PEDS [address] [place] [address] Chaya Rolon LPN Social History Tobacco Use [...] 9:00 AM EDT Office Visit [facility] MED & PEDS [address] [place] [address] Martin Stoner MD [address] [place] [address] documented as of this encounter Procedures Procedure Name Priority Date/Time Associated Diagnosis Comments BI MAMMOGRAM SCREENING TOMOSYNTHESIS BILATERAL Routine 08/11/2022 3:45 PM EST BD DEXA AXIAL Routine 08/11/2022 3:20 PM EST documented in this encounter Results * BI Mammogram Screening Tomosynthesis Bilateral (08/11/2022 3:45 PM EST) Anatomical Region Laterality Modality Breast Bilateral Mammography 08/11/2022 3:45 PM EST Narrative 08/15/2022 12:46 PM EST [facility] [place], [place] [address] Mammography Report Signed Patient: Gabby Mclean MR#: [id number] : 1950 Acct:[id number] Age/Sex: 71 / F ADM Date: 08/11/22 Loc: HO.MAMMO Attending Dr: Roly Gardiner MD Ordering Physician: Roly Morgan MD Res ults: 1Negative Date of Service: 08/11/22 Follow Up: 1 Year From Orig ina Mammogram Procedure(s): MM tomosynthesis screening BI Accession Number(s): [id number] cc: Roly Morgan MD EXAMINATION: MM SCREENING [...] in OV> 08/15/22 1243 DD/ 1545 TD/TT: Survey Technician: LO Procedure Note Donotuseinterpreter, Image - 08/15/2022 [facility] [address] [place], [place] [address] Mammography Report Signed Patient: Gabby McleanMR#: [id number] : 9Acct:[id number] Age/Sex: 71 / FADM Date: 08/11/22 Loc: HO.MAMMO Attending Dr: Roly Gardiner MD Ordering Physician: Roly Morgan ults: 1Negative Date of Service: 08/11/22Follow Up: 1 Year From Orig inal Mammogram Procedure(s): MM tomosynthesis screening BI Accession Number(s): [id number] cc: Roly Morgan MD EXAMINATION: MM SCREENING [...] in OV> 08/15/22 1243 DD/ 1545 TD/TT: Survey Technician: LO us [facility] External Provider IMG BI PROCEDURES Edited Result - Final * BD DEXA Axial (08/11/2022 3:20 PM EST) Anatomical Region Laterality Modality Body Radiographic Kaye ging 08/11/2022 3:20 PM EST Narrative 08/14/2022 7:35 AM EST [facility] [address] [place] [address] Mammography Report Signed Patient: Gabby Mclean MR#: [id number] : 1950 Acct:[id number] Age/Sex: 71 / F ADM Date: 08/11/22 Loc: MAMMO Attending Dr: Roly Gardiner MD Ordering Physician: Roly Morgan MD Res ults: Date of Service: 08/11/22 Follow Up: Procedure(s): XR DEXA axial skeleton Accession Number(s): [id number] cc: Roly Morgan MD EXAMINATION: BONE DENSITOMETRY CLINICAL INDICATION: Other specified disorders of bone density and structure, unspecified site.. COMPARISON: Previous BD dated 09/12/2019 and baseline BD dated 08/22/2007. TECHNIQUE: Using a BERD DXA System (software version: 13.1) manufactured by [employer], dual-energy x-ray absorptiometry was performed of the [...] in OV> 08/14/22 0732 DD/ 1520 TD/TT: Survey Technician: TERESITA Procedure Note Donotuseinterpreter, Image - 08/14/2022 [place] [facility] [address] [place] [address] Mammography Report Signed Patient: Opal Mclean#: [id number] : 9Acct:[id number] Age/Sex: 71 / FADM Date: 08/11/22 Loc: HO.MAMMO Attending Dr: Roly Gardiner MD Ordering Physician: Roly Morgan ults: Date of Service: 08/11/22Follow Up: Procedure(s): XR DEXA axial skeleton Accession Number(s): [id number] cc: Roly Morgan MD EXAMINATION: BONE DENSITOMETRY CLINICAL INDICATION: Other specified disorders of bone density and structure, unspecified site.. COMPARISON: Previous BD dated 09/12/2019 and baseline BD dated 08/22/2007. TECHNIQUE: Using a BERD DXA System (software version: 13.1) manufactured by [employer], dual-energy x-ray absorptiometry was performed of the [...] in OV> 08/14/22 0732 DD/ 1520 TD/TT: Survey Technician: TERESITA [facility] External Provider IMG DXA PROCEDURES Final Result documented in this encounter Visit Diagnoses Not on filedocumented in this encounter Care Teams Machine Farmworker Relationship Specialty Start Date End Date Roly Morgan MD [address] [place] [address] PCP - General Internal Medicine 12/21/19 04/20/25 Martin Stoner MD [address] [place] [address] PCP - General Internal Medicine 04/21/25 documented as of this encounter
--- OUTSIDE RECORDS SUMMARY | 2025-05-14 14:50 | XMS_ITS | Encounter Summary ---
Author Organization [employer] Address [address] [place] [address] 7 [place] [address] Care Team Providers Care Fare Register Repairer Name Role Phone Roly Morgan MD Primary Care Prov ider Martin Stoner MD Primary Care Provider [phone] Encounter Details Date Type Department Care Team ([facility] st Contact Info) Description 10/24/2023 Orders Only [facility] [address] [place], [place] [phone] Roly Morgan MD [address] [place] [address] Social History Tobacco Use Types Packs/Day Years [...] Description 05/19/2025 9:00 AM EDT Office Visit [facility] [address] [place] [address] Martin Stoner MD [address] [place] [address] documented as of this encounter Visit Diagnoses Not on filedocumented in this encounter Additional Health Concerns Assessment Noted Time PHQ-9 Depression Total Score: 0 10/10/19 23 2:31 PM EDT documented as of this encounter Care Teams Fare Register Repairer Relationship Specialty Start Date End Date Roly Morgan MD [address] [place] [address] PCP - General Internal Medicine 12/21/19 04/20/25 Martin Stoner MD [address] [place] [address] PCP - General Internal Medicine 04/21/25 documented as of this encounter
--- OUTSIDE RECORDS SUMMARY | 2025-05-14 14:50 | XMS_ITS | Encounter Summary ---
Author Organization [employer] Address [address] [place] [address] 7t [place] [address] Care Team Providers Care Archeology Faculty Member Name Role Phone Roly Morgan MD Primary Care Prov ider Martin Stoner MD Primary Care Provider [phone] Encounter Details Date Type Department Care Team (Late st Contact Info) Description 11/12/2023 Orders Only [facility] [address] [place] [address] ProviderSimran MD Social History Tobacco Use Types [...] 05/19/2025 9:00 AM EDT Office Visit [facility] [address] [place] [address] Martin Stoner MD [address] [place] [address] documented as of this encounter Procedures Procedure [...] documented as of this encounter Care Teams Archeology Faculty Member Relationship Specialty Start Date End Date Roly Morgan MD [address] [place] [address] PCP - General Internal Medicine 12/21/19 04/20/25 Martin Stoner MD [address] [place] [address] PCP - General Internal Medicine 04/21/25 documented as of this encounter
--- OUTSIDE RECORDS SUMMARY | 2025-05-14 14:51 | XMS_ITS | Encounter Summary ---
Author Organization [employer] Address [address] [place] [address] 7t [place] [address] Care Team Providers Care Paper Coating Supervisor Name Role Phone Martin Stoner MD Primary Care Provider [phone] Encounter Details Date Type Department Care Team ([facility] st Contact Info) Description 04/27/2025 Orders Only [facility]S [address] [place], [place] [phone] Martin Stoner MD [address] [place] [address] Type 2 diabetes mellitus with hyperglycemia, without long-term current use of insulin (HCC) (Primary Dx); Hypoglycemia Social History Tobacco Use Types Packs/Day Years [...] housing situation today? I have idania cary 04/14/[address] you li [...] Description 05/19/2025 9:00 AM EDT Office Visit [facility]S [address] [place] [address] Martin Stoner MD [address] [place] [address] Scheduled Orders Name Type Priority Associated Diagnoses Orde r Schedule Comprehensive Metabolic Panel Lab Routine Type 2 diabetes mellitus with hyperglycemia, without long-term current use of insulin (HCC) Hypoglycemia Expected: 04/27/2025 (Approximate), Expires: 04/27/2026 documented as of this encounter Visit Diagnoses Diagnosis Type 2 diabetes mellitus with hyperglycemia, without long-term current use of insulin (HCC)- Primary Hypoglycemia Hypoglycemia, unspecified documented in this encounter Additional Health Concerns Assessment Noted Time PHQ-9 Depression Total Score: 1 04/21/20 25 10:46 AM EDT documented as of this encounter Care Teams Paper Coating Supervisor Relationship Specialty Start Date End Date Martin Stoner MD [address] [place] [address] PCP - General Internal Medicine 04/21/25 documented as of this encounter
--- OUTSIDE RECORDS SUMMARY | 2025-05-14 14:51 | XMS_ITS | Encounter Summary ---
Author Organization [employer] Address [address] [place] [address] 7 [place] [address] Care Team Providers Care Cooker Cleaner Name Role Phone Roly Morgan MD Primary Care Prov ider Martin Stoner MD Primary Care Provider [phone] Encounter Details Date Type Department Care Team (Late st Contact Info) Description 12/12/2024 Orders Only [facility] [address] [place] [address] Provider, MD Simran Social History Tobacco Use [...] Description 05/19/2025 9:00 AM EDT Office Visit [facility]S [address] [place], [place] [phone] Martin Stoner MD [address] [place], [place] [phone] documented as of this encounter Procedures Procedure Name Priority Date/Time Associated Diagnosis Comments BONE DENSITY/DEXA (HIPS, PELVIS OR SPINE) Routine 12/10/2024 12:52 PM EDT documented in this encounter Results * BONE DENSITY/DEXA (HIPS, PELVIS OR SPINE) (12/10/2024 12:52 PM EDT) Anatomical Region Laterality Modality L-spine N/A Radiographic Kaye ging Historical Provider MD SANDERS DXA PROCEDURES Final Result documented in this encounter Visit Diagnoses Not on filedocumented in this encounter Additional Health Concerns Assessment Noted Time PHQ-9 Depression Total Score: 0 12/11/19 24 9:28 AM EDT documented as of this encounter Care Teams Cooker Cleaner Relationship Specialty Start Date End Date Roly Morgan MD [address] [place], [place] [phone] PCP - General Internal Medicine 12/21/19 04/20/25 Martin Stoner MD [address] [place], [place] [phone] PCP - General Internal Medicine 04/21/25 documented as of this encounter
--- OUTSIDE RECORDS SUMMARY | 2025-05-14 14:51 | XMS_ITS | Clinical Summary ---
Author Organization [employer] Address [address] [place] [address] 7t [place] [address] Care Team Providers Care Rn Surgery Name Role Phone Martin Stoner MD Primary Care Provider [phone] Allergies No known active allergies Medications rosuvastatin (Crestor) 40 MG tabletIndication s:Mixed hyperlipidemia TAKE ONE TABLET AT BEDTIME 90 tablet 1 023 Active FREESTYLE LITE test strip TEST BLOOD SUGAR THREE TIMES DAILY 100 strip 11 023 Active TRUEplus Lancets 33G misc TEST BLOOD SUGAR THREE TIMES DAILY 100 each 11 023 Active Acetaminophen Extra Strength 500 MG tablet TAKE 1 OR 2 TABLETS TABLETS EVERY 8 HOURS NEEDED 100 tablet 023 Active metoprolol succinate XL (Toprol-XL) 25 MG 24 hr tablet Take 1 tablet by mouth in the morning. 023 Active fluticasone (Flonase) 50 MCG/ACT nasal spray INHALE ONE SPRAY IN EACH NOSTRIL DAILY 16 g 11 023 Active Blood Pressure kit 1 kit in the morning. 1 kit 024 Active Aspirin Adult Low Strength 81 MG EC tabletIndication s:Primary hypertension,Typ e 2 diabetes mellitus with hyperglycemia, without long-term current use of insulin (HCC) TAKE ONE TABLET EVERY EVENING 30 tablet 024 Active cholecalciferol VITAMIN D (Vitamin D-3) 50 MCG (1999) capsuleIndicatio ns:Vitamin D deficiency TAKE ONE CAPSULE EVERY MORNING 30 capsule 024 Active oxybutynin XL (Ditropan-XL) 5 MG 24 hr tabletIndication s:Mixed stress and urge urinary incontinence TAKE ONE TABLET EVERY MORNING 30 tablet 11 024 Active Alcohol Swabs (Alcohol Prep) 70 % pads USE FOUR DAILY 100 each 11 024 Active alendronate (Fosamax) 70 MG tabletIndication s:Age-related osteoporosis without current pathological fracture TAKE 1 TABLET ONCE A WEEK WITH 6 TO 8 OZ OF WATER 30 MINUTES BEFORE FIRST FOOD OF THE DAY. DO NOT LIE DOWN FOR 30 MINUTES. 4 tablet 025 Active Jardiance 25 MGIndications:Ty pe 2 diabetes mellitus without complication, without long-term current use of insulin (HCC) TAKE ONE TABLET EVERY MORNING 90 tablet 3 025 Active BD Pen Needle Short Ultrafine 31G X 8 MM misc USE FOUR DAILY 100 each Active metFORMIN (Glucophage) 500 MG tablet TAKE TWO TABLETS TWICE DAILY IN THE MORNING AND EVENING WITH FOOD 360 tablet 1 Active Lantus SoloStar 100 UNIT/ML pen INJECT 20 UNITS SUBCUTANEOUSLY AT BEDTIME 15 mL 3 025 Active NovoLOG FLEXPEN 100 UNIT/ML pen INJECT FIVE UNITS SUBCUTANEOUSLY BEFORE BREAKFAST, BEFORE LUNCH AND BEFORE SUPPER 15 mL 3 025 Active lisinopril 20 MG tabletIndication s:Primary hypertension Take 1 tablet (20 mg) by mouth Once per day. 30 tablet Active glucose 4 g chewable tabletIndication s:Type 2 diabetes mellitus with hyperglycemia, without long-term current use of insulin ([facility]),Hypoglycem ia Chew 4 tablets (16 g) if needed for low blood sugar. 50 tablet 12 025 2025 Active Repatha SureClick 140 MG/ML injection INJECT 140 MG SUBCUTANEOUSLY EVERY TWO WEEKS Active ticagrelor (Brilinta) 90 MG tablet Active Brilinta 90 MG tablet Take 1 tablet by mouth 2 times daily. 023 2024 Discontinued(T herapy completed) lisinopril 10 MG tablet Take 1 tablet by mouth 1 (one) time each day. 023 2024 Discontinued(R eorder (will not trigger notification to Pharmacy)) Continuous Blood Gluc Sensor (FreeStyle Shirin 2 Sensor) misc 1 Units before breakfast, before lunch, and before evening meal. 2 each 11 023 2024 Discontinued(M ed list cleanup (will not trigger notification to Pharmacy)) Continuous Blood Gluc [employer] (DomobStyle Shirin 2 [place]) device 1 Units 3 times daily. 1 each 1 023 2024 Discontinued(M ed list cleanup (will not trigger notification to Pharmacy)) lisinopril 10 MG tabletIndication s:Primary hypertension Take 2 tablets (20 mg) by mouth Once per day. 30 tablet 11 025 2024 Discontinued(R eorder (will not trigger notification to Pharmacy)) Active Problems Problem Noted Date Diagnosed Date Osteopenia determined by x-ray 08/28/2023 0 08/28/2023 Seasonal allergies 08/28/2023 08/28/2023 Hospital discharge follow-up 04/03/2023 Assessment & Plan (04/03/2023 10:21 AM EDT): Patient was admitted at [facility] from 03/22 to 03/25, found with nito, [...] (08/28/2023 3:10 PM EST): Last 5 days [id number], on metoformin/jardiance/lantus and aspart, no reported hypoglycemia [...] Encounters Date Type Department Care Team Description 05/14/2025 Travel 04/27/2025 Results Follow-Up [facility] [address] [place] [address] Martin Stoner MD POCT Glucose, POCT Hgb A1c, CBC auto differential, Additional followed-up results: 4 04/27/2025 Orders Only [facility] [address] [place] [address] Martin Stoner MD Type 2 diabetes mellitus with hyperglycemia, without long-term current use of insulin ([facility]) (Primary Dx); Hypoglycemia 04/27/2025 Telephone [facility] [address] [place] [address] Martin Stoner MD Critical Lab : Glucose 04/21/2025 10:15 AM EDT Office Visit [facility] [address] [place] [address] Martin Stoner MD Type 2 diabetes mellitus with hyperglycemia, without long-term current use of insulin ([facility]) (Primary Dx); Primary hypertension; Vitamin D deficiency; Mixed hyperlipidemia; Encounter for immunization 04/21/2025 Travel 04/20/2025 Telephone [facility] [address] [place] [address] Roly Morgan MD chart prep 04/14/2025 Patient Outreach [facility] [address] [place] [phone] Roly Morgan MD Pre-visit Planning (SDOH screening negative and Tobacco screening negative) 03/17/2025 Refill [facility] [address] [place] [address] Martin Stoner MD 03/13/2025 Refill [facility] [address] [place] [address] Roly Morgan MD 02/27/2025 Telephone [facility] [address] [place] [address] Roly Morgan MD Change PCP 02/24/2025 Telephone [facility] [address] [place], [place] [phone] Roly Morgan MD PCP change 02/24/2025 Telephone [facility] [address] [place] [address] Roly Morgan MD Appointment Request from Last 3 Months Immunizations Immunization Administration [...] 09/14/1997 Pneumococcal Conjugate PCV 13 11/23/2015 Pneumococcal Conjugate PCV 20 05/14/2025 Pneumococcal Polysaccharide PPSV23 01/01/2014, Pneumococcal, Unspecified 06/20/2001 RSV Bivalent 05/14/2025 TD (adult), 2 Lf tetanus tox oid, [...] housing situation today? I have idaniacatrachita cary 04/14/[address] you [...] Sign Reading Time Taken Comments Blood Pressure 148/44 05/14/2025 10:24 AM EDT Pulse 63 05/14/2025 10:24 AM EDT Temperature 37.1 C (98.7 F) 04/01/2024 10:32 AM EDT Respiratory Rate 20 04/21/2025 10:18 AM EDT Oxygen Saturation 99% 05/14/2025 10:24 AM EDT Inhaled Oxygen Concentration - - Weight 55.3 kg (122 lb) 04/21/2025 10:18 AM EDT Height 154.9 cm (5' 1 ) 04/21/2025 10:18 AM EDT Body Mass Index 23.05 04/21/2025 10:18 AM EDT Plan of Treatment Upcoming Encounters Date Type Department Care Team ([facility] st Contact Info) Description 05/19/2025 9:00 AM EDT Office Visit [facility] [address] [place] [address] Martin Stoner MD [address] [place], [place] [phone] Health Maintenance Due Date Last Done Comments Eye Exam 1960 Zoster Vaccines (3 of 3) 04/24/2023 02/27/2023, 09/2012 COVID-19 Vaccine ( season) 2025 08/18/2021, 10/27/2020, 09/29/2020 Diabetes: Hemoglobin A1C 07/21/202504/21/ 025, 04/01/2024, 12/14/2023, Additional history exists Alcohol/Substance Use Screening 09/11/2025 09/11/2024 SDOH Screening 04/14/2026 04/14/2025 Depression Screening 04/21/2026 04/21/2025, 04/21/20 25 Diabetes: Foot Exam 04/21/2026 04/21/2025, 05/02/2023, 05/02/2023, Additional history exists Tobacco Screening 04/21/2026 04/21/2025 Diabetes: Urine Protein Screening 04/27/2026 04/27/2025, 04/01/2024, 03/02/2023, Additional history exists Lipid Panel 04/27/2026 04/27/2025, 03/23, 08/31/2023, Additional history exists DTaP/Tdap/Td Vaccines (3 - Td or Tdap) 02/27/2033 02/27/2023, 03/24/2010, 12/07/2005, Additional history exists Colonoscopy Discontinued 10/01/2007 Colorectal Cancer Screening Discontinued Hepatitis B Vaccines Completed 11/23/2015, 02/02/2015, 01/01/2014 Hepatitis C Screening Completed 04/03/2022 Influenza Vaccine Completed 04/21/2025, , 05/08/2022, Additional history exists Pneumococcal Vaccine: 50+ Years Completed 05/14/2025, 11/23/2015, 01/01/2014, Additional history exists RSV Patients and Patients Aged 60 years or older Completed 05/14/2025 CT Colonography Discontinued FIT DNA/Cologuard Discontinued FIT [...] Procedure Name Priority Date/Time Associated Diagnosis Comments ALBUMIN, RANDOM URINE W/CREATININE Routine 04/27/2025 8:40 AM EDT Type 2 diabetes mellitus with hyperglycemia, without long-term current use of insulin (CMS/HCC) TSH W/REFLEX TO FT4 Routine 04/27/2025 8 :37 AM EDT Type 2 diabetes mellitus with hyperglycemia, without long-term current use of insulin (CMS/HCC) LIPID PANEL, STANDARD Routine 04/27/2025 8:37 AM EDT Type 2 diabetes mellitus with hyperglycemia, without long-term current use of insulin (CMS/HCC) COMPREHENSIVE METABOLIC PANEL Routine 04/27/2025 8:37 AM EDT Type 2 diabetes mellitus with hyperglycemia, without long-term current use of insulin (CMS/HCC) CBC WITH AUTO DIFFERENTIAL Routine 04/27/2025 8:37 AM EDT Type 2 diabetes mellitus with hyperglycemia, without long-term current use of insulin (CMS/HCC) POCT GLUCOSE Routine 04/21/2025 10:45 AM EDT [...] Relevant to Health Maintenance Results * (ABNORMAL) Albumin, Random Urine W/Creatinine (04/27/2025 8:40 AM EDT) Creatinine, Urine 137.98 mg/dL [facility] Microalbumin Urine 56.0 mg/L [facility] Microalbum Creatinine Ratio Ur 40.5(H) <30 ug/mg cr [facility] Comment:Albumin/Creatinine R atio Reference Ranges: Normal: < 30 ug/mg creatinine Microalbuminuria: 30 - 300 ug/mg creatinineClinical Albuminuria: > 300 ug/mg creatinine Urine (Urine, Random) 04/27/2025 8:40 AM EDT 04/27/2025 2:29 PM EDT us Martin Stoner MD LAB URINE ORDERABLES Final Result [facility] [address] [place] [address] [phone] * TSH with Reflex to Free T4 (04/27/2025 8:37 AM EDT) Pathologist [facility] TSH reflex Free T4 1.63 0.32 - 4.0 uIU/mL [facility] Blood Venous blood specimen / Unknown 04/27/2025 8:37 AM EDT 04/27/2025 2:37 PM EDT us Martin Stoner MD LAB BLOOD ORDERABLES Final Result [facility] [address] [place] [address] [phone] * CBC auto differential (04/27/2025 8:37 AM EDT) Pathologist [facility] White Blood Count 9.4 4.8 - 10.8 X10*3/uL [facility] Red Blood Count 4.82 4.20 - 5.50 X10*6/uL [facility] Hemoglobin 13.7 12.0 - 16.0 g/dl [facility] Hematocrit 41.3 37.0 - 47.0 % [facility] Mean Corpuscular Volume 85.7 80.0 - 98.0 fL [facility] Mean Corpuscular Hemoglobin 28.4 27.0 - 33.0 pg [facility] Mean Corpuscular HGB Conc 33.2 31.0 - 35.0 g/dl [facility] Red Cell Distribution Width 12.9 11.0 - 16.0 % [facility] Platelet Count 330 160 - 400 X10*3/uL [facility] Mean Platelet Volume 10.4 9.4 - 12.3 fL [facility] Neutrophils Percent Auto 56.8 45 - 73 % [facility] Imm Gran Pct Auto 0.3 0.0 - 0.4 % [facility] Lymphocytes Percent Auto 32.0 20 - 40 % [facility] Monocytes Percent Auto 6.9 2 - 11 % [facility] Eosinophils Percent Auto 3.2 0 - 4 % [facility] Basophils Percent Auto 0.8 0 - 2 % [facility] NRBC Pct Auto 0.0 0.0 - 0.2 /100WBC [facility] Neutrophils Absolute Auto 5.4 2.0 - 8.3 x10*3/uL [facility] Imm Gran Abs Auto 0.03 0.00 - 0.03 X10*3/uL [facility] Lymphocytes Absolute Auto 3.0 1.2 - 4.9 X10*3/uL [facility] Monocytes Absolute Auto 0.7 0.1 - 1.2 X10*3/uL [facility] Eosinophils Absolute Auto 0.3 0.0 - 0.4 X10*3/uL [facility] Basophils Absolute Auto 0.1 0.0 - 0.2 X10*3/uL [facility] NRBC Abs Auto 0.000 0.0 - 0.012 X10*3/uL [facility] Blood Venous blood specimen / Unknown 04/27/2025 8:37 AM EDT 04/27/2025 2:37 PM EDT us Martin Stoner MD LAB BLOOD ORDERABLES Final Result [facility] [address] [place], [place] [phone] * Lipid Panel, Standard (04/27/2025 8:37 AM EDT) Triglycerides 70 <150 mg/dL [facility] Comment:Desirable Triglyceri de: less than 150 mg/dLBorderline High Triglyceride 150-199 mg/dLHigh Triglyceride: 200-499 mg/dLVery High Triglyceride: greater than or equal to 5OO mg/dL Cholesterol 80 <200 mg/dL [facility] Comment:Desirable Cholestero l: less than 200 mg/dLBorderline High Cholesterol: 200-239 mg/dLHigh Cholesterol: greater than 239 mg/dL LDL Cholesterol Calculated 21 <100 mg/dL [facility] Comment:Desirable LDL: less than 100 mg/dLNear Optimal/Above Optimal LDL: 110- 129 mg/dLBorderline High LDL: 130-159 mg/dLHigh LDL: 160-189 mg/dLVery High LDL: greater than or equal to 190 mg/dL HDL Cholesterol 45 >40 mg/dL [facility] Comment:Desirable HDL: great er than 40 mg/dL Note: This HDL assay may give artificially low results in patients with liver disease. Blood Venous blood specimen / Unknown 04/27/2025 8:37 AM EDT 04/27/2025 2:37 PM EDT us Martin Stoner MD LAB BLOOD ORDERABLES Final Result [facility] [address] [place] [address] [phone] * (ABNORMAL) Comprehensive Metabolic Panel (04/27/2025 8:37 AM EDT) Sodium 141 135 - 145 mmol/L [facility] Potassium 3.6 3.3 - 5.1 mmol/L [facility] Chloride 108 96 - 108 mmol/L [facility] Carbon Dioxide 28 22 - 29 mmol/L [facility] Anion Gap 9(L) 12 - 20 [facility] Urea Nitrogen (BUN) 24(H) 9 - 16 mg/dL [facility] Creatinine, Serum 1.15 0.5 - 1.4 mg/dL [facility] Estimated Glomerular Filt Rate 46 [facility] Comment:Chronic Kidney Disea se: Estimated GFR < 60 mL/min/1.61l4Dapxrn Kidney Disease: Estimated GFR < 15 mL/min/1.73m2 Glucose 55(LL) 60 - 115 mg/dL [facility] Comment:Critical value for t est(s): GLU Results called to and readback by: YOVANY Alcala Person calling: MELANIE Date:04/27/25Time: 1531 Calcium 9.4 8.4 - 10.2 mg/dL [facility] Bilirubin, Total 0.4 0.0 - 1.0 mg/dL [facility] Aspartate Amino Transferase 29 5 - 31 U/L [facility] Alanine Aminotransferase 10 0 - 31 U/L [facility] Total Protein 6.9 6.5 - 8.0 g/dL [facility] Albumin Level 4.0 3.5 - 5.0 g/dL [facility] Alkaline Phosphatase 65 39 - 117 U/L [facility] Blood Venous blood specimen / Unknown 04/27/2025 8:37 AM EDT 04/27/2025 2:37 PM EDT Martin Stoner MD LAB BLOOD ORDERABLES Final Result [facility] [address] [place] [phone] * (ABNORMAL) POCT Glucose (04/21/2025 10:45 AM EDT) Glucose Blood, POC 226(A) 60 - 200 mg/dL [facility] [employer] Lot # [id number] Lot# Expiration Date Comment:RANDOM Blood Capillary blood specimen / Unknown 04/21/2025 10:45 AM EDT Martin Stoner MD POINT OF CARE TEST ENTER/ED IT ORDERABLES Final Result * (ABNORMAL) POCT Hgb A1c (04/21/2025 10:44 AM EDT) Hemoglobin A1C 8.0(A) 4.0 - 5.7 % QC Media Lot # [id number] Lot# Expiration Date Blood 04/21/2025 10:4 4 AM EDT Martin Stoner MD POINT OF CARE TEST ENTER/ED IT ORDERABLES Final Result * HEPATITIS C AB W/REFL TO HCV RNA, QN, PCR (04/03/2022 10:03 AM EDT) HEPATITIS C ANTIBODY NON-REACT CRIS NON-REACT CRIS [facility] INDEX 0.15 <1.00 [facility] Comment: HCV antibody was non-reactive. There is no laboratory evidence of HCV infection. In most cases, no further action is required. However, if recent HCV exposure is suspected, a test for HCV RNA (test code 72800) is suggested. For additional information please refer to http://education.[employer] Process/faq/QGB40l9 (This link is being provided for informational/ educational purposes only.) 04/03/2022 10:0 3 AM EDT Roly Gardiner MD HISTORICAL/NON ORD ERABLE LABS Final Result [facility] [address] [place] [address], * Hm Colonoscopy (10/01/2007 9:07 AM EDT) Historical Provider HEALTH MAINTENANCE Final Result from Last 3 Months or Most Recently Relevant to Health Maintenance Insurance [facility] [employer] (O D-SNP) [place] RAMOS [id number] Care Teams Rn Surgery Relationship Specialty Start Date End Date Martin Stoner MD [address] [place] [phone] PCP - General Internal Medicine 04/21/25
--- OUTSIDE RECORDS SUMMARY | 2025-05-14 14:51 | XMS_ITS | Encounter Summary ---
Author Organization [employer] Address [address] [place] [address] [address] [place] [address] Care Team Providers Care Yarn Man Name Role Phone Martin Stoner MD Primary Care Provider [phone] Encounter Details Date Type Department Care Team (Latest Contact Info) Description 05/14/2025 Travel Social History Tobacco Use Types Packs/Day Years [...] Upcoming Encounters Date Type Department Care Team ([facility] st Contact Info) Description 05/19/2025 9:00 AM EDT Office Visit [facility] MED & PEDS [address] [place] [address] Martin Stoner MD [address] [place] [address] documented as of this encounter Visit Diagnoses Not on filedocumented in this encounter Additional Health Concerns Assessment Noted Time PHQ-9 Depression Total Score: 1 04/21/20 25 10:46 AM EDT documented as of this encounter Care Teams Yarn Man Relationship Specialty Start Date End Date Martin Stoner MD [address] [place] [address] PCP - General Internal Medicine 04/21/25 documented as of this encounter
--- OUTSIDE RECORDS SUMMARY | 2025-05-14 14:51 | XMS_ITS | Encounter Summary ---
Author Organization [employer] Address [address] [place] [address] [address], [place] [address] Care Team Providers Care Jr. Java Developer Name Role Phone Roly Morgan MD Primary Care Prov ider Martin Stoner MD Primary Care Provider [phone] Encounter Details Date Type Department Care Team (Late st Contact Info) Description 12/22/2022 Orders Only [facility] MED & PEDS [address] [place] [address] Chaya Rolon LPN Social History Tobacco Use [...] Description 05/19/2025 9:00 AM EDT Office Visit [facility] MED & PEDS [address] [place] [address] Martin Stoner MD [address] [place] [address] documented as of this encounter Visit Diagnoses Not on filedocumented in this encounter Additional Health Concerns Assessment Noted Time PHQ-9 Depression Total Score: 0 10/10/19 23 2:31 PM EDT documented as of this encounter Care Teams Jr. Java Developer Relationship Specialty Start Date End Date Roly Morgan MD [address] [place] [address] PCP - General Internal Medicine 12/21/19 04/20/25 Martin Stoner MD [address] [place] [address] PCP - General Internal Medicine 04/21/25 documented as of this encounter
--- OUTSIDE RECORDS SUMMARY | 2025-05-14 14:51 | XMS_ITS | Encounter Summary ---
Author Organization [employer] Address [address] [place] [address] Care Team Providers Care Deer Farm Worker Name Role Phone Roly Morgan MD Primary Care Prov ider Martin Stoner MD Primary Care Provider [phone] Encounter Details Date Type Department Care Team (Late st Contact Info) Description 03/22/2023 Orders Only [facility] MED & PEDS [address] [place] [address] Roly Morgan MD [address] [place] [address] Social History Tobacco Use Types Packs/Day Years [...] Encounters Date Type Department Care Team (Late Contact Info) Description 05/19/2025 9:00 AM EDT Office Visit [facility] MED & PEDS [address] [place] [address] Martin Stoner MD [address] [place] [address] documented as of this encounter Visit Diagnoses Not on filedocumented in this encounter Additional Health Concerns Assessment Noted Time PHQ-9 Depression Total Score: 0 10/10/19 23 2:31 PM EDT documented as of this encounter Care Teams Deer Farm Worker Relationship Specialty Start Date End Date Roly Morgan MD [address] [place] [address] PCP - General Internal Medicine 12/21/19 04/20/25 Martin Stoner MD [address] [place] [address] PCP - General Internal Medicine 04/21/25 documented as of this encounter
--- OUTSIDE RECORDS SUMMARY | 2025-05-14 14:51 | XMS_ITS | Clinical Summary ---
Author Organization [facility] Address [address] [place] [address] Phone Care Team Providers Care Needle Maker Name Role Phone Roly Morgan Primary Care [...] probability of hip fracture of 2.9%. Code 42442 -------- FINAL REPORT -------- Dictated By: Ricky Raman Dictated Date: 12/12/2024 08:14 ET Assigned Physician: Ricky Raman Reviewed and Electronically Signed By: Ricky Raman Signed Date: 12/12/2024 08:15 ET Workstation ID: [id number] Transcribed By: Self Edit Transcribed Date: 12/12/2024 [...] density of the femurs bilaterally is 0.756 gm/kg3zncwu is 75% of that of young normals [...] probability of hip fracture of 2.9%. Code 79580 -------- FINAL REPORT -------- Dictated By: Ricky Raman Dictated Date: 12/12/2024 08:14 ET Assigned Physician: Ricky Raman Reviewed and Electronically Signed By: Ricky Raman Signed Date: 12/12/2024 08:15 ET Workstation ID: [id number] Transcribed By: Self Edit Transcribed Date: 12/12/2024 08:14 ET Roly Gardiner [facility] DXA PROCEDURES Fi nal Result from Last 3 Months or Most Recently Relevant to Health Maintenance Insurance MEDICAID - [place] [facility] MEDICARE Member Subscriber Plan / Payer (Ef fective 2016-Present) Name:Gabby Mclean Relation to Subscriber:Self Name:Gabby Mclean Payer ID:[id number] Group ID:[id number] Type:Not on file Address: [address] [place] [address] Care Teams Needle Maker Relationship Specialty Start Date End Date Roly Morgan [address] [place] [address] PCP - General Internal Medicine 09/23/24
--- OUTSIDE RECORDS SUMMARY | 2025-05-14 14:51 | XMS_ITS | Encounter Summary ---
Author Organization [employer] Address [address] [place] [address] [place] [address] Care Team Providers Care Washing And Screening Plant Supervisor Name Role Phone Roly Morgan MD Primary Care Prov ider Martin Stoner MD Primary Care Provider [phone] Reason for Visit * Reason Onset Date Comments Change PCP 02/27/2025 Encounter Details Date Type Department Care Team ([facility] st Contact Info) Description 02/27/2025 Telephone [facility] MED & PEDS [address] [place], [place] [phone] Roly Morgan MD [address] [place] [address] Change PCP Social History Tobacco Use Types [...] clinic. Any questions contact pt daughter at [phone] documented in this encounter Plan of Treatment Upcoming Encounters Date Type Department Care Team ([facility] st Contact Info) Description 05/19/2025 9:00 AM EDT Office Visit [facility] MED & PEDS [address] [place] [address] Martin Stoner MD [address] [place], [place] [phone] documented as of this encounter Visit Diagnoses Not on filedocumented in this encounter Additional Health Concerns Assessment Noted Time PHQ-9 Depression Total Score: 0 12/11/19 24 9:28 AM EDT documented as of this encounter Care Teams Washing And Screening Plant Supervisor Relationship Specialty Start Date End Date Roly Morgan MD [address] [place] [address] PCP - General Internal Medicine 12/21/19 04/20/25 Martin Stoner MD [address] [place] [address] PCP - General Internal Medicine 04/21/25 documented as of this encounter
--- OUTSIDE RECORDS SUMMARY | 2025-05-14 14:51 | XMS_ITS | Encounter Summary ---
Author Organization [employer] Address [address] [place] [address] 7 [place] [address] Care Team Providers Care Torpedo Shooter Name Role Phone Roly Morgan MD Primary Care Prov ider Martin Stoner MD Primary Care Provider [phone] Encounter Details Date Type Department Care Team (Late st Contact Info) Description 10/13/2022 Orders Only [facility] MED & PEDS [address] [place] [address] Chaya Rolon LPN Social History Tobacco Use [...] Description 05/19/2025 9:00 AM EDT Office Visit [facility] MED & PEDS [address] [place], [place] [phone] Martin Stoner MD [address] [place], [place] [phone] documented as of this encounter Visit Diagnoses Not on filedocumented in this encounter Additional Health Concerns Assessment Noted Time PHQ-9 Depression Total Score: 0 10/10/19 23 2:31 PM EDT documented as of this encounter Care Teams Torpedo Shooter Relationship Specialty Start Date End Date Roly Morgan MD [address] [place] [address] PCP - General Internal Medicine 12/21/19 04/20/25 Martin Stoner MD [address] [place] [address] PCP - General Internal Medicine 04/21/25 documented as of this encounter
[2025-05-14 15:06] LABS: Alanine Aminotransferase 15 U/L (0-31); Albumin Level 4.4 g/dL (3.5-5.0); Alkaline Phosphatase 75 U/L (39-117); Anion Gap 12 (12-20); Aspartate Amino Transferase 27 U/L (5-31); Blood Urea Nitrogen 17 mg/dL (9-16); Calcium 9.6 mg/dL (8.4-10.2); Carbon Dioxide 28 mmol/L (22-29); Chloride 107 mmol/L (96-108); Estimated Glomerular Filt Rate 41; Potassium 4.5 mmol/L (3.3-5.1); Sodium 142 mmol/L (135-145); Total Protein 7.4 g/dL (6.5-8.0)
== END 2025-05-14 11:38 | disposition home or self-care (01) ==
LOC: HO.CHCLDS 11:37
PROVIDERS: Visit Provider Internal Medicine
DX: E11.65 Type 2 diabetes mellitus with hyperglycemia (principal); E11.649 Type 2 diabetes mellitus with hypoglycemia without coma
CPT/HCPCS: 36415; 80053